=== PATIENT | female | born 1965 | race Caucasian/White ===

== ENCOUNTER 2018-10-28 16:53 | Inpatient (IN) ==
[2018-10-28] MEDS ORDERED: ONDANSETRON INJ 2 MG/ML 2 ML VIAL IV STA (17:10)
[2018-10-28] MEDS ORDERED: KETOROLAC TROMETHAMINE 15 MG/ML VIAL IV STA (17:10)
[2018-10-28] MEDS ORDERED: SODIUM CHLORIDE 0.9% 1000ML 1,000 ML IV SCH (17:15)
--- NOTE | 2018-10-28 17:29 | Emergency Department Note ---
Entered by Lori Rm acting as a scribe for Jonah Pearce MD History of Present Illness General Chief complaint: Flu Like Symptoms Stated complaint: + INFLUENZA A, CHEMO PATIENT Time Seen by Provider: 10/28/18 17:02 Source: patient Mode of arrival: ambulatory Limitations: no limitations History of Present Illness Provider complaint: flu-like symptoms Onset (ago): day(s) 3 Location: head (generalized) Pain Consistency: + other (persistent) Maximum Pain Intensity: 10 Current Pain Intensity: 7 Quality: + other (flu-like) Relieved By: not by medication Associated symptoms: + chest pain, + cough, + fever/chills, + loss of appetite, + nausea/vomiting, + shortness of breath and + weakness Treatments prior to arrival: other (Tamiflu) The patient is a 53 year old female who presents to the Emergency Room with complaints of persistent flu-like symptoms that began 3 days ago. The patient reports that she has been experiencing high fevers, loss of appetite, as well as a cough. She states that she has also had difficulty breathing secondary to chest pain which she describes as "an elephant siting on my chest." She notes that she has also had a sore throat as well as vomiting and diarrhea. The patient reports that she was diagnosed yesterday with Influenza A via a nose swab and given Tamiflu. She states that she did take it today but notes no relief of her symptoms. The patient reports that she currently has Lymphoma and states that her last chemotherapy session was on October 13. She denies receiving radiation. She also denies a history of heart or lung disease. The patient reports that she has been drinking Pedialyte, water and Rosalba Mary Jane. She denies having a chest x-ray performed yesterday. Home Medications Home Medications Medication Instructions Recorded Confirmed Type albuterol sulfate [ProAir HFA] 2 puff INHALATION Q6H PRN 10/28/18 10/28/18 History alprazolam 0.5 mg PO HS PRN 10/28/18 10/28/18 History apremilast [Otezla Starter] 1 dose PO DIRECTED 10/28/18 10/28/18 History betamethasone valerate 1 applic TOPICAL DIRECTED 10/28/18 10/28/18 History escitalopram oxalate 10 mg PO DAILY 10/28/18 10/28/18 History hydrochlorothiazide 25 mg PO DAILY 10/28/18 10/28/18 History linaclotide [Linzess] 145 mcg PO DAILY 10/28/18 10/28/18 History oseltamivir 75 mg PO BID 10/28/18 10/28/18 History pantoprazole 20 mg PO DAILY 10/28/18 10/28/18 History selenium sulfide 1 applic TOPICAL DIRECTED 10/28/18 10/28/18 History Allergies Allergy/AdvReac Type Severity Reaction Status Date / Time rituximab Allergy Severe ANAPHYLAXIS Verified 10/28/18 17:34 Past Med/Surg History Medical History Subconjunctival hemorrhage (Chronic) Lymphoma (Chronic) HTN (hypertension) (Chronic) Psoriasis (Chronic) GERD (gastroesophageal reflux disease) (Chronic) IBS (irritable bowel syndrome) (Chronic) Follicular lymphoma (Chronic) Surgical History Bilateral breast implants (Chronic 09/18/12) Family History Mother Hypertension Social History marital status: Current Living Situation: Spouse Feels Safe at Home: Yes Smoking Status: Never smoker Hx Alcohol Use: Yes Review of Systems See HPI for pertinent positives & negatives. and A total of 10 systems reviewed and were otherwise negative Physical Exam Vital Signs Vital Signs - 24 hr 10/28/18 16:55 10/28/18 17:32 10/28/18 17:44 Temperature 36.9 C Temperature Source Oral Sepsis Recent Fever Within 48 Hours No Sepsis Action Taken by Nursing No Action Required Pulse Rate 84 Pulse Rate [Apical] 78 Pulse Rhythm Regular Pulse Strength Normal Respiratory Rate 22 22 Respiratory Effort / Characteristics Non-Labored Spontaneous Non-Labored Respiratory Depth Normal Normal Respiratory Pattern Regular Regular Blood Pressure 130/86 Blood Pressure [Left Arm] 125/84 Blood Pressure Mean 100 Blood Pressure Mean [Left Arm] 97 Blood Pressure Position Sitting Blood Pressure Position [Left Arm] Lying Pulse Oximetry 97 99 99 Oxygen Delivery Method Room Air Room Air Room Air 10/28/18 19:05 Temperature Temperature Source Sepsis Recent Fever Within 48 Hours Sepsis Action Taken by Nursing Pulse Rate Pulse Rate [Apical] 74 Pulse Rhythm Pulse Strength Respiratory Rate 16 Respiratory Effort / Characteristics Non-Labored Respiratory Depth Normal Respiratory Pattern Regular Blood Pressure Blood Pressure [Left Arm] 135/91 Blood Pressure Mean Blood Pressure Mean [Left Arm] 105 Blood Pressure Position Blood Pressure Position [Left Arm] Lying Pulse Oximetry 94 Oxygen Delivery Method Room Air GENERAL: Patient is in no acute distress. HEENT: No acute trauma, normocephalic atraumatic, mucous membranes moist, no nasal congestion, no scleral icterus. No throat erythema or exudate. NECK: No stridor, no adenopathy, no meningismus, trachea is midline. LUNGS: Clear to auscultation bilaterally, no wheeze, no rhonchi, breath sounds equal. HEART: Without murmurs gallops or rubs, regular rate and rhythm. ABDOMEN: Soft, nontender, bowel sounds positive, no hernias, no peritonitis. EXTREMITIES: No cyanosis or edema, full range of motion of all the joints without pain or difficulty, no signs for acute trauma. NEUROLOGIC: Oriented x 3, no acute motor or sensory deficits, no focal weakness. SKIN: No rash, no jaundice, no diaphoresis. Course 170: Past medical records reviewed. The patient was evaluated in room B9, and a complete history and physical examination were performed. 1814: I reviewed the patient's case with Carine Jeter PA-C - [facility] Hospitalist. She will evaluate the patient for further management. 1820: I updated the patient on today's findings as well as the treatment plan. Administered Medications Discontinued Medications Sodium Chloride (Nss 1000ml) 1,000 mls @ 999 mls/hr IV .[id number] GENA Stop: 10/28/18 18:15 Last Infusion: 10/28/18 18:36 Dose: 0 mls/hr Documented by: [id number] Admin: 10/28/18 17:39 Dose: 999 mls/hr Documented by: [id number] Potassium Chloride (K Germán / Wtr) 10 meq in 100 mls @ 100 mls/hr IV ONE ONE Stop: 10/28/18 19:12 Last Infusion: 10/28/18 19:44 Dose: 0 mls/hr Documented by: [id number] Admin: 10/28/18 18:39 Dose: 100 mls/hr Documented by: [id number] Sodium Chloride (Nss 1000ml) 500 mls @ 999 mls/hr IV .Q31M ONE Stop: 10/28/18 18:44 Last Infusion: 10/28/18 19:17 Dose: 0 mls/hr Documented by: [id number] Admin: 10/28/18 18:39 Dose: 999 mls/hr Documented by: [id number] Potassium Chloride 40 meq/ (Sodium Chloride) 1,020 mls @ 100 mls/hr IV .[id number] GENA Stop: 11/27/18 19:14 Last Infusion: 10/28/18 20:26 Dose: 0 mls/hr Documented by: [id number] Admin: 10/28/18 19:47 Dose: 100 mls/hr Documented by: [id number] Ketorolac Tromethamine (Toradol) 15 mg IV NOW STA Stop: 10/28/18 17:11 Last Admin: 10/28/18 17:39 Dose: 15 mg Documented by: [id number] Ondansetron HCl (Zofran) 4 mg IV NOW STA Stop: 10/28/18 17:11 Last Admin: 10/28/18 17:39 Dose: 4 mg Documented by: [id number] Potassium Chloride (Klor-Con M20) 40 meq PO NOW STA Stop: 10/28/18 18:14 Last Admin: 10/28/18 18:39 Dose: 40 meq Documented by: [id number] Potassium Chloride (Klor-Con M10) 50 meq PO NOW STA Stop: 10/28/18 19:54 Last Admin: 10/28/18 20:58 Dose: Not Given Documented by: [id number] Medical Decision Making Differential Diagnosis Differential Diagnosis includes: influenza, immunocompromise, pneumonia, anemia, electrolyte imbalance, cardiac ischemia, UTI, failed outpatient treatments Medical Records Attestation: I reviewed the patient's medical records. Home Medications Current Medication List: was personally reviewed by me Laboratory Data Attestation: I reviewed the patient's lab results. Result diagrams: 10/28/18 17:17 10/28/18 17:17 Lab Results 10/28/18 10/28/18 10/28/18 Range/Units 17:17 17:17 17:17 WBC 2.52 L (4.8-10.8) K/uL RBC 4.17 L (4.2-5.4) M/uL Hgb 13.2 (12.0-16.0) g/dL Hct 36.2 L (37-47) % MCV 86.8 (80-100) fL MCH 31.7 (25-34) pg MCHC 36.5 H (32-36) g/dL RDW Std Deviation 38.9 (36.4-46.3) fL RDW Coeff of Manisha 12.2 (11.5-14.5) % Plt Count 158 (130-400) K/uL MPV 8.8 (7.4-10.4) fL Immature Gran % (Auto) 0.8 % Neut % (Auto) 73.8 % Lymph % (Auto) 12.3 % Wilkes % (Auto) 12.7 % Eos % (Auto) 0.0 % Baso % (Auto) 0.4 % Immature Gran # (Auto) 0.02 (0.00-0.02) K/uL Neut # (Auto) 1.86 (1.4-6.5) K/uL Lymph # (Auto) 0.31 L (1.2-3.4) K/uL [place] # (Auto) 0.32 (0.11-0.59) K/uL Eos # (Auto) 0.00 (0-0.5) K/uL Baso # (Auto) 0.01 (0-0.2) K/uL Sodium 124 L (136-145) mmol/L Potassium 2.5 L* (3.5-5.1) mmol/L Chloride 84 L (98-107) mmol/L Carbon Dioxide 32 (21-32) mmol/L Anion Gap 8.0 (3-11) BUN 7 (7-18) mg/dl Creatinine 0.74 (0.6-1.2) mg/dl Est Cr Clr Drug Dosing 79.1 ml/min Est GFR ( Amer) 107.2 Est GFR (Non-Af Amer) 92.5 BUN/Creatinine Ratio 10.0 (10-20) Glucose 98 (70-99) mg/dl Osmolality 256 L (280-300) mOsm/kg Lactate (0.4-2.0) mmol/L Calcium 8.3 L (8.5-10.1) mg/dl Magnesium 2.2 (1.8-2.4) mg/dl Total Bilirubin 0.7 (0.2-1) mg/dl AST 28 (15-37) U/L ALT 28 (12-78) U/L Alkaline Phosphatase 42 L (45-117) U/L Troponin I < 0.015 (0-0.045) ng/ml Total Protein 7.1 (6.4-8.2) gm/dl Albumin 3.7 (3.4-5.0) gm/dl Globulin 3.4 (2.5-4.0) gm/dl Albumin/Globulin Ratio 1.1 (0.9-2) TSH 2.460 (0.300-4.500) uIu/ml 10/28/18 Range/Units 17:20 WBC (4.8-10.8) K/uL RBC (4.2-5.4) M/uL Hgb (12.0-16.0) g/dL Hct (37-47) % MCV (80-100) fL MCH (25-34) pg MCHC (32-36) g/dL RDW Std Deviation (36.4-46.3) fL RDW Coeff of Manisha (11.5-14.5) % Plt Count (130-400) K/uL MPV (7.4-10.4) fL Immature Gran % (Auto) % Neut % (Auto) % Lymph % (Auto) % [place]kes % (Auto) % Eos % (Auto) % Baso % (Auto) % Immature Gran # (Auto) (0.00-0.02) K/uL Neut # (Auto) (1.4-6.5) K/uL Lymph # (Auto) (1.2-3.4) K/uL Wilkes # (Auto) (0.11-0.59) K/uL Eos # (Auto) (0-0.5) K/uL Baso # (Auto) (0-0.2) K/uL Sodium (136-145) mmol/L Potassium (3.5-5.1) mmol/L Chloride (98-107) mmol/L Carbon Dioxide (21-32) mmol/L Anion Gap (3-11) BUN (7-18) mg/dl Creatinine (0.6-1.2) mg/dl Est Cr Clr Drug Dosing ml/min Est GFR ( Amer) Est GFR (Non-Af Amer) BUN/Creatinine Ratio (10-20) Glucose (70-99) mg/dl Osmolality (280-300) mOsm/kg Lactate 1.0 (0.4-2.0) mmol/L Calcium (8.5-10.1) mg/dl Magnesium (1.8-2.4) mg/dl Total Bilirubin (0.2-1) mg/dl AST (15-37) U/L ALT (12-78) U/L Alkaline Phosphatase (45-117) U/L Troponin I (0-0.045) ng/ml Total Protein (6.4-8.2) gm/dl Albumin (3.4-5.0) gm/dl Globulin (2.5-4.0) gm/dl Albumin/Globulin Ratio (0.9-2) TSH (0.300-4.500) uIu/ml Imaging Data Radiologist's Impression: Radiology results as stated below per my review and the radiologist's interpretation: XR chest 1V portable CLINICAL HISTORY: weakness dyspnea COMPARISON STUDY: 02/19/2018 FINDINGS: Central catheter in the superior vena cava. Lungs are clear. Diaphragms smooth. Minimal platelike atelectasis right midlung. IMPRESSION: No acute process. The above report was generated using voice recognition software. It may contain grammatical, syntax or spelling errors. Electronically signed by: Tunde Moore M.D. 10/28/2018 5:32 PM Blood Pressure Blood Pressure Findings: Normal blood pressure Blood Pressure Disposition: did not require urgent referral MDM Narrative The patient does have a lower white count, this is consistent with her chemotherapy, she is not neutropenic. No concerning anemia. Electrolytes demonstrate a low sodium and low potassium. No kidney failure. No hepatitis. EKG shows a sinus rhythm, no acute ischemia. Cardiac enzyme testing x1 is not consistent with acute cardiac injury. The patient appears to be in a euthyroid state. Chest film does not show pneumonia or CHF. The patient received IV saline, she was given a second bolus of IV saline. She received IV Toradol for pain, IV Zofran for nausea. She received oral and IV potassium. The patient presents with influenza A as diagnosis an outpatient. She is on chemotherapy and has lymphoma. She presents with nausea, vomiting and diarrhea. She has Zofran at home that is not working. She has developed hyponatremia and hypokalemia and she is dehydrated. A hospital stay is warranted. I spoke to the patient and gearcase assembler. The on-call hospitalist was consulted. Impression & Plan Weak, Lymphoma, Nausea & vomiting, Hyponatremia, Hypokalemia, Influenza A Discharge Plan Visit Data *Final* Discharge Date/Time: 10/28/18 20:12 Chief Complaint: Flu Like Symptoms Stated Complaint: + INFLUENZA A, CHEMO PATIENT ED Provider: Jonah Pearce Discharge Problem: Weak, Lymphoma, Nausea & vomiting, Hyponatremia, Hypokalemia, Influenza A Patient Disposition: Admitted As Inpatient Discharge Instructions Interventions: ED Discharge Assessment Last Done: 10/28/18 20:12 Discharge Problem: Lymphoma Qualifiers: Lymphoma type: unspecified type Lymphoma site: unspecified region Qualified Code(s): C85.90 - Non-Hodgkin lymphoma, unspecified, unspecified site Nausea & vomiting Qualifiers: Vomiting type: unspecified Vomiting Intractability: non-intractable Qualified Code(s): R11.2 - Nausea with vomiting, unspecified The scribe's documentation has been prepared under my direction and personally reviewed by me in its entirety. I confirm that the note above accurately reflects all work, treatment, procedures, and medical decision making performed by me.
[2018-10-28 17:32] LABS: Basophils # (auto) 0.01 K/uL (0-0.2); Basophils % (auto) 0.4 %; Hematocrit (blood only) 36.2 % (37-47); Hemoglobin 13.2 g/dL (12.0-16.0); Immature Granulocytes # (auto) 0.02 K/uL (0.00-0.02); Immature Granulocytes % (auto) 0.8 %; Lymphocytes # (auto) 0.31 K/uL (1.2-3.4); Lymphocytes % (auto) 12.3 %; Mean Corpuscular Hgb Conc 36.5 g/dL (32-36); Mean Corpuscular Volume 86.8 fL (80-100); Mean Platelet Volume 8.8 fL (7.4-10.4); Monocytes # (auto) 0.32 K/uL (0.11-0.59); Monocytes % (auto) 12.7 %; Neutrophils # (auto) 1.86 K/uL (1.4-6.5); Neutrophils % (auto) 73.8 %; Platelet Count 158 K/uL (130-400); RDW Coefficient of Variation 12.2 % (11.5-14.5); RDW Standard Deviation 38.9 fL (36.4-46.3); Red Blood Count 4.17 M/uL (4.2-5.4); White Blood Count 2.52 K/uL (4.8-10.8)
--- NOTE | 2018-10-28 17:33 | XRay Report ---
XR chest 1V portable CLINICAL HISTORY: weakness dyspnea COMPARISON STUDY: 02/19/2018 FINDINGS: Central catheter in the superior vena cava. Lungs are clear. Diaphragms smooth. Minimal rebekah telike atelectasis right midlung. IMPRESSION: No acute process. The above report was generated using voice recognition software. It may contain grammatical, syntax or spelling errors. Electronically signed by: Tunde Moore M.D. 10/28/2018 5:32 PM
[2018-10-28 18:10] LABS: Alanine Aminotransferase 28 U/L (12-78); Albumin Globulin Ratio 1.1 (0.9-2); Albumin Level 3.7 gm/dl (3.4-5.0); Alkaline Phosphatase 42 U/L (45-117); Aspartate Aminotransferase 28 U/L (15-37); Bilirubin,Total 0.7 mg/dl (0.2-1); Blood Urea Nitrogen 7 mg/dl (7-18); Calcium 8.3 mg/dl (8.5-10.1); Carbon Dioxide 32 mmol/L (21-32); Chloride 84 mmol/L (98-107); Creatinine Clr Calc Pharmacy 79.1 ml/min; Est GFR (African American) 107.2; Est GFR (Non-African American) 92.5; Globulin 3.4 gm/dl (2.5-4.0); Glucose 98 mg/dl (70-99); Magnesium 2.2 mg/dl (1.8-2.4); Potassium 2.5 mmol/L (3.5-5.1); Sodium 124 mmol/L (136-145); Total Protein 7.1 gm/dl (6.4-8.2); Troponin I < 0.015 ng/ml (0-0.045)
[2018-10-28] MEDS ORDERED: POTASSIUM CHLORIDE / WTR 10 MEQ/100 ML PLCT IV ONE (18:13)
[2018-10-28] MEDS ORDERED: POTASSIUM CHLORIDE 20 MEQ TABCR PO STA ×3 (18:13→23:47)
[2018-10-28] MEDS ORDERED: SODIUM CHLORIDE 0.9% 1000ML 500 ML IV ONE (18:14)
[2018-10-28] MEDS ORDERED: POTASSIUM CHLORIDE 40 MEQ in SODIUM CHLORIDE 0.9% 1000ML 1,000 ML IV SCH (19:15)
[2018-10-28] MEDS ORDERED: CALCIUM GLUCONATE 10% 10 ML VIAL IV STA (19:49)
[2018-10-28] MEDS ORDERED: POTASSIUM CHLORIDE 10 MEQ TABCR PO STA (19:53)
--- NOTE | 2018-10-28 20:05 | History & Physical Report ---
Date of Service October 28, 2018 Assessment & Plan (1) Influenza A: (2) Hypokalemia: (3) Hyponatremia: Please refer to Dr. Martínez's addendum for assessment and plan History of Present Illness Chief Complaint: Fever, Nausea, Vomiting, Diarrhea Primary Care Provider: Jeffrey Chance DO 53-year-old female who presents the ED with fever, nausea, vomiting, diarrhea. Patient was seen at [facility] in [place] yesterday and diagnosed with influenza A. Patient was started on Tamiflu. Of note, patient has follicular lymphoma and is currently undergoing chemo, last treatment was on October 13 (bendumustine, which she receives every 8 weeks at [facility] in [place]). Patient reports she has been sick for the past 4 days. She reports fever, body aches, chills. She has had vomiting and diarrhea but denies any hematemesis, coffee-ground emesis, bright blood per rectum, dark tarry stools. She denies any recent sick contacts. She reports chest pain but reports that her body aches all over. She reports some mild lightheadedness and dizziness while standing but denies any syncopal event. No urinary symptoms. In the ED, patient was found to have electrolyte abnormalities including hyponatremia with sodium 124 and hypokalemia with potassium 2.5. Patient was given IVF, potassium replacement, IV Toradol, IV Zofran. Allergies Allergy/AdvReac Type Severity Reaction Status Date / Time rituximab Allergy Severe ANAPHYLAXIS Verified 10/28/18 17:34 Home Medications Home Medications Medication Instructions Recorded Confirmed Type albuterol sulfate [ProAir HFA] 2 puff INHALATION Q6H PRN 10/28/18 10/28/18 History alprazolam 0.5 mg PO HS PRN 10/28/18 10/28/18 History apremilast [Otezla Starter] 1 dose PO DIRECTED 10/28/18 10/28/18 History betamethasone valerate 1 applic TOPICAL DIRECTED 10/28/18 10/28/18 History escitalopram oxalate 10 mg PO DAILY 10/28/18 10/28/18 History hydrochlorothiazide 25 mg PO DAILY 10/28/18 10/28/18 History linaclotide [Linzess] 145 mcg PO DAILY 10/28/18 10/28/18 History oseltamivir 75 mg PO BID 10/28/18 10/28/18 History pantoprazole 20 mg PO DAILY 10/28/18 10/28/18 History selenium sulfide 1 applic TOPICAL DIRECTED 10/28/18 10/28/18 History Past Med/Surg History Medical History Subconjunctival hemorrhage (Chronic) Lymphoma (Chronic) HTN (hypertension) (Chronic) Psoriasis (Chronic) GERD (gastroesophageal reflux disease) (Chronic) IBS (irritable bowel syndrome) (Chronic) Follicular lymphoma (Chronic) Surgical History Bilateral breast implants (Chronic 09/18/12) Family History Mother Hypertension Social History Preferred Language: Austrian Communication Ability: Effective Beliefs That Will Affect Care: None marital status: Current Living Situation: Spouse Feels Safe at Home: Yes Safety Concerns: Feels Safe At This Time Smoking Status: Never smoker Hx Alcohol Use: Yes Review of Systems ROS per HPI, all other systems reviewed and negative Physical Exam Vital Signs (Past 24 Hours): Last Vital Signs Temp 36.9 C 10/28/18 16:55 Pulse 74 10/28/18 19:05 Resp 16 10/28/18 19:05 BP 135/91 10/28/18 19:05 Pulse Ox 94 10/28/18 19:05 Constitutional: WD/WN, vitals as above + ill appearing Eyes: PERRL, conjunctivae normal, anicteric sclerae ENMT: external ear and nose normal, oropharynx normal Respiratory: normal respiratory effort, lungs clear to auscultation Cardiovascular: Rate/Rhythm: regular rate and regular rhythm Vessels: normal peripheral pulses Extremities: no edema Chest (Breasts): Chest: + vascular access device or port (Port noted to right chest(currently not accessed), no surrounding erythema or drainage) Gastrointestinal (Abdomen): normal bowel sounds, soft, nontender, no hepatosplenomegaly Musculoskeletal: no cyanosis or clubbing, extremities motor strength 5/5 Skin: no rashes, warm and dry Neurologic: PERRL, EOMI, accommodation nl, no face palsy, no dysarthria Psychiatric: A+Ox3, euthymic affect Results & Data Laboratory Results Laboratory Last Values WBC 2.52 K/uL (4.8-10.8) L 10/28/18 17:17 RBC 4.17 M/uL (4.2-5.4) L 10/28/18 17:17 Hgb 13.2 g/dL (12.0-16.0) 10/28/18 17:17 Hct 36.2 % (37-47) L 10/28/18 17:17 MCV 86.8 fL (80-100) 10/28/18 17:17 MCH 31.7 pg (25-34) 10/28/18 17:17 MCHC 36.5 g/dL (32-36) H 10/28/18 17:17 RDW Std Deviation 38.9 fL (36.4-46.3) 10/28/18 17:17 RDW Coeff of Manisha 12.2 % (11.5-14.5) 10/28/18 17:17 Plt Count 158 K/uL (130-400) 10/28/18 17:17 MPV 8.8 fL (7.4-10.4) 10/28/18 17:17 Immature Gran % (Auto) 0.8 % 10/28/18 17:17 Neut % (Auto) 73.8 % 10/28/18 17:17 Lymph % (Auto) 12.3 % 10/28/18 17:17 [place] % (Auto) 12.7 % 10/28/18 17:17 Eos % (Auto) 0.0 % 10/28/18 17:17 Baso % (Auto) 0.4 % 10/28/18 17:17 Immature Gran # (Auto) 0.02 K/uL (0.00-0.02) 10/28/18 17:17 Neut # (Auto) 1.86 K/uL (1.4-6.5) 10/28/18 17:17 Lymph # (Auto) 0.31 K/uL (1.2-3.4) L 10/28/18 17:17 [place] # (Auto) 0.32 K/uL (0.11-0.59) 10/28/18 17:17 Eos # (Auto) 0.00 K/uL (0-0.5) 10/28/18 17:17 Baso # (Auto) 0.01 K/uL (0-0.2) 10/28/18 17:17 Sodium 124 mmol/L (136-145) L 10/28/18 17:17 Potassium 2.5 mmol/L (3.5-5.1) L* 10/28/18 17:17 Chloride 84 mmol/L (98-107) L 10/28/18 17:17 Carbon Dioxide 32 mmol/L (21-32) 10/28/18 17:17 Anion Gap 8.0 (3-11) 10/28/18 17:17 BUN 7 mg/dl (7-18) 10/28/18 17:17 Creatinine 0.74 mg/dl (0.6-1.2) 10/28/18 17:17 Est Cr Clr Drug Dosing 79.1 ml/min 10/28/18 17:17 Est GFR ( Amer) 107.2 10/28/18 17:17 Est GFR (Non-Af Amer) 92.5 10/28/18 17:17 BUN/Creatinine Ratio 10.0 (10-20) 10/28/18 17:17 Glucose 98 mg/dl (70-99) 10/28/18 17:17 Lactate 1.0 mmol/L (0.4-2.0) 10/28/18 17:20 Calcium 8.3 mg/dl (8.5-10.1) L 10/28/18 17:17 Magnesium 2.2 mg/dl (1.8-2.4) 10/28/18 17:17 Total Bilirubin 0.7 mg/dl (0.2-1) 10/28/18 17:17 AST 28 U/L (15-37) 10/28/18 17:17 ALT 28 U/L (12-78) 10/28/18 17:17 Alkaline Phosphatase 42 U/L (45-117) L 10/28/18 17:17 Troponin I < 0.015 ng/ml (0-0.045) 10/28/18 17:17 Total Protein 7.1 gm/dl (6.4-8.2) 10/28/18 17:17 Albumin 3.7 gm/dl (3.4-5.0) 02/28/19 17:17 Globulin 3.4 gm/dl (2.5-4.0) 10/28/18 17:17 Albumin/Globulin Ratio 1.1 (0.9-2) 10/28/18 17:17 TSH 2.460 uIu/ml (0.300-4.500) 10/28/18 17:17 Diagnostic Findings CXR IMPRESSION: No acute process. Code Status & VTE Plan VTE Prophylaxis Plan VTE Prophylaxis will be ordered: Yes Supervising Physician Co-Signing Physician Notes IM ATTENDING : Patient seen and examined. History obtained from patient and records. Preceding documentation by DOMINIC Tee reviewed. FINAL ASSESSMENT AND PLAN as follows : Hyponatremia, hypokalemia secondary to abdominal pain/diarrheal illness rule out C. difficile Poor oral intake from influenza home diuretic contributory Pleuritic chest pain secondary to cough symptoms from flu D-dimer was normal NHL ongoing chemotherapy HTN, stable Mood disorder, stable Past tobacco abuse Medical telemetry Careful correction of sodium, hyponatremia workup Appropriate to hold home HCTZ for now Nephrology consult if without improvement in a.m. Replace potassium Stool C. difficile CT abdomen pelvis RE abdominal pain rule out colitis Mucolytic as needed Complete Tamiflu course DVT prophylaxis. Lovenox subcu Full code
[2018-10-28] MEDS ORDERED: CALCIUM GLUCONATE 10% 1,000 MG in SODIUM CHLORIDE 0.9% 50 ML IV STA (20:21)
[2018-10-28] MEDS ORDERED: POTASSIUM CHLORIDE 20 MEQ TABCR PO ONE (21:00)
[2018-10-28] MEDS: OSELTAMIVIR PHOSPHATE 75 MG CAP PO SCH (22:02)
[2018-10-28] MEDS: LINZESS~ORDER AWAITING ACTION SCH (23:12)
[2018-10-28] MEDS: OTEZLA~ORDER AWAITING ACTION SCH (23:12)
[2018-10-28 23:29] LABS: Prothrombin Time 10.5 Seconds (9.0-12.0)
[2018-10-28 23:31] LABS: D Dimer 440 ug/L FEU (0-500); Partial Thromboplastin Ratio 1.2; Partial Thromboplastin Time 31.9 Seconds (21.0-31.0)
[2018-10-28 23:42] LABS: BUN Creatinine Ratio 11.7 (10-20); Creatinine Clr Calc Pharmacy 99.3 ml/min; Est GFR (African American) 115.2; Est GFR (Non-African American) 99.4; Potassium 3.1 mmol/L (3.5-5.1)
[2018-10-28] MEDS: ACETAMINOPHEN 325 MG TAB PO PRN (23:50)
[2018-10-29] MEDS ORDERED: MoRPHine SULFATE 4 MG/ML 1 ML CARP\\VIAL IV PRN (00:11)
[2018-10-29] MEDS ORDERED: BENZONATATE 100 MG CAPSULE PO PRN (00:11)
[2018-10-29] MEDS ORDERED: OXYCODONE HCL IR 5 MG TAB (IMMEDIATE RELEASE) PO PRN (00:11)
[2018-10-29] MEDS ORDERED: IOVERSOL 100ml IV PRN (00:19)
[2018-10-29] MEDS ORDERED: XOPENEX/ATROVENT 1.25mg/0.5MG NEB COMBO NEB PRN (01:41)
[2018-10-29] MEDS ORDERED: IPRATROPIUM BROMIDE NEB SOLN 0.02% 2.5 ML VIAL INH PRN (01:41)
[2018-10-29] MEDS ORDERED: LEVALBUTEROL 1.25MG/0.5ML NEB INH PRN (01:45)
[2018-10-29] MEDS: guaiFENesin 600 MG TABCR PO SCH ×3 (01:48→21:40)
[2018-10-29 02:08] LABS: Appearance Urine Clear (Clear); Bilirubin Urine Negative (Negative); Blood Urine Negative (Negative); Color Urine Yellow; Glucose Urine UA Negative (Negative); Ketones Urine Trace (Negative); Leukocyte Esterase Urine Negative (Negative); Nitrite Urine Negative (Negative); Protein Urine Negative (Negative); Specific Gravity Urine 1.037 (1.000-1.030); Urobilinogen Urine Negative (Negative); pH Urine 6.5 (4.5-7.5)
[2018-10-29 04:29] LABS: BUN Creatinine Ratio 11.9 (10-20); Calcium 7.8 mg/dl (8.5-10.1); Creatinine Clr Calc Pharmacy 110.5 ml/min; Est GFR (African American) 119.3; Est GFR (Non-African American) 102.9; Potassium 3.3 mmol/L (3.5-5.1)
[2018-10-29 04:30] LABS: Hematocrit (blood only) 32.8 % (37-47); Hemoglobin 11.9 g/dL (12.0-16.0); Mean Corpuscular Hgb Conc 36.3 g/dL (32-36); Mean Platelet Volume 9.2 fL (7.4-10.4); Platelet Count 151 K/uL (130-400); RDW Coefficient of Variation 12.3 % (11.5-14.5); RDW Standard Deviation 39.3 fL (36.4-46.3); Red Blood Count 3.77 M/uL (4.2-5.4); White Blood Count 1.42 K/uL (4.8-10.8)
[2018-10-29 04:38] LABS: Basophils # (auto) 0.01 K/uL (0-0.2); Basophils % (auto) 0.7 %; Eosinophils # (auto) 0.01 K/uL (0-0.5); Eosinophils % (auto) 0.7 %; Immature Granulocytes # (auto) 0.01 K/uL (0.00-0.02); Immature Granulocytes % (auto) 0.7 %; Lymphocytes # (auto) 0.34 K/uL (1.2-3.4); Lymphocytes % (auto) 23.9 %; Monocytes # (auto) 0.19 K/uL (0.11-0.59); Monocytes % (auto) 13.4 %; Neutrophils # (auto) 0.86 K/uL (1.4-6.5); Neutrophils % (auto) 60.6 %
[2018-10-29] MEDS ORDERED: POTASSIUM CHLORIDE 20 MEQ TABCR PO STA (04:42)
[2018-10-29] MEDS ORDERED: NSS + 20MEQ KCL 20 MEQ/1,000 ML BAG IV ONE (05:00)
--- NOTE | 2018-10-29 06:55 | CT Scan Report ---
CT OF THE ABDOMEN AND PELVIS WITH CONTRAST CLINICAL HISTORY: Abdominal pain. COMPARISON STUDY: CT of the abdomen and pelvis 10/19/2012. Right upper quadrant ultrasound April 09, 2013. TECHNIQUE: Following IV administration of 92 mL of Optiray-320, axial images of the abdomen and pelvi s were obtained from the lung bases to the proximal femurs. Images were reviewed in the axial, sagitt al, and coronal planes. IV contrast was administered without complication. Automated exposure contro l was utilized for the study. A dose lowering technique was utilized adhering to the principles of A GAYATRI. CT DOSE: 452.38 mGy.cm FINDINGS: Bilateral breast implants are partially imaged. The liver, spleen, adrenal glands and pancr eas are unremarkable. There is no pancreatic or biliary ductal dilatation. Several right renal calcul i measure up to 5 mm. There are no ureteral catheter. There is no hydronephrosis or hydroureter. The nephrograms are symmetric. There is mild plaque of the abdominal aorta. There is trace fluid within t he pelvis. Note is made of mild bladder wall thickening. The appendix is not visualized. No pneumatos is, free air or portal venous gas is present. The small large bowel are slightly fluid-filled. There is no bowel wall thickening. No suspicious osseous lesions are noted. There is no lymphadenopathy. IMPRESSION: 1. Right-sided nephrolithiasis. No ureteral calculi. No hydronephrosis. 2. No bowel obstruction. No bowel wall thickening. Minimal fluid within the small bowel which is like ly within normal limits however an enteritis could have this appearance. 3. Trace fluid within the pelvis. 4. Bladder wall thickening which could be correlated with urinalysis to exclude cystitis. Electronically signed by: Danny Carvalho M.D. 10/29/2018 6:53 AM
[2018-10-29] MEDS: OTEZLA~ORDER AWAITING ACTION SCH ×3 (08:29→23:17)
[2018-10-29] MEDS: ESCITALOPRAM OXALATE 10 MG TAB PO SCH (08:29)
[2018-10-29] MEDS: OSELTAMIVIR PHOSPHATE 75 MG CAP PO SCH ×2 (08:29→21:39)
[2018-10-29] MEDS: PANTOprazole 40 MG TAB PO SCH (08:29)
[2018-10-29] MEDS: LINZESS~ORDER AWAITING ACTION SCH ×3 (08:30→23:17)
[2018-10-29] MEDS ORDERED: ENOXAPARIN INJ 30 MG/0.3 ML SYR SQ SCH (09:00)
[2018-10-29] MEDS: ENOXAPARIN INJ 40 MG/0.4 ML SYR SQ SCH (09:54)
--- NOTE | 2018-10-29 12:29 | Hospitalist Progress Note ---
Date of Service October 29, 2018 Assessment & Plan (1) Influenza A: on tamiflu associated with cough, diarrhea cough - Nebs q6h monitor management of diarrhea as noted below (2) Nausea & vomiting: associated with diarrhea likely viral CT abdomen: enteritis continue clear liquids c diff negative PRN Imodium IV fluids- monitor Na (3) Hyponatremia: 126 up to 132 repeat at 7pm may need to hold IV NSS if trending up, may need D5 water nephro consulted (4) Hypokalemia: replaced with PO Supplement and K added to NSS (5) Follicular lymphoma: last chemo 10/13 from Oncologist in [place] (6) Neutropenia: likely from viral infection, in the setting of chemotherapy monitor daily isolation protocol (7) HTN (hypertension): stable HCTZ on hold (8) Psoriasis: on Otezla (9) GERD (gastroesophageal reflux disease): Protonix ordered (10) Discharge planning issues: will need PT OT eval lives at home with family (11) DVT prophylaxis: Lovenox SC daily Subjective ff up for flu, cough, diarrhea seen resting in bed, comfortable states she feels somewhat better compared to yesterday still having diarrhea, 3 BMS so far, no blood with mild abdominal discomfort no nausea still has dry cough no chest pain denies other symptoms Physical Exam Vital Signs (Past 24 Hours): Last Vital Signs Temp 36.8 C 10/29/18 11:14 Pulse 68 10/29/18 11:14 Resp 20 10/29/18 11:14 BP 123/82 10/29/18 11:14 Pulse Ox 94 10/29/18 11:14 Physical Exam: General- oriented x 3, not in distress, speaks in sentences with no effort or accessory muscle use Eyes- anicteric Neck- no JVD Lungs- (+) mild scattered wheezing bilaterally Heart- normal rate, regular rhythm; no murmurs Abdomen- normal bowel sounds, nondistended, soft, nontender Extremities- no pretibial edema, no calf tenderness Neuro- alert, oriented x 3; no gross focal neurologic deficits Skin- warm & dry Results & Data Laboratory Results Laboratory Results - last 24 hr 10/28/18 10/28/18 10/28/18 17:17 17:17 17:20 WBC RBC Hgb Hct MCV MCH MCHC RDW Std Deviation RDW Coeff of Manisha Plt Count MPV Immature Gran % (Auto) Neut % (Auto) Lymph % (Auto) [place] % (Auto) Eos % (Auto) Baso % (Auto) Immature Gran # (Auto) Neut # (Auto) Lymph # (Auto) [place] # (Auto) Eos # (Auto) Baso # (Auto) PT INR APTT PTT Ratio D-Dimer Sodium 124 L Potassium 2.5 L* Chloride 84 L Carbon Dioxide 32 Anion Gap 8.0 BUN 7 Creatinine 0.74 Est Cr Clr Drug Dosing 79.1 Est GFR ( Amer) 107.2 Est GFR (Non-Af Amer) 92.5 BUN/Creatinine Ratio 10.0 Glucose 98 Osmolality 256 L Lactate 1.0 Calcium 8.3 L Magnesium 2.2 Total Bilirubin 0.7 AST 28 ALT 28 Alkaline Phosphatase 42 L Troponin I < 0.015 Total Protein 7.1 Albumin 3.7 Globulin 3.4 Albumin/Globulin Ratio 1.1 TSH 2.460 Urine Color Urine Appearance Urine pH Ur Specific [place] Urine Protein Urine Glucose (UA) Urine Ketones Urine Blood Urine Nitrite Urine Bilirubin Urine Urobilinogen Ur Leukocyte Esterase Stl C. diff Tox B Gene 10/28/18 10/28/18 10/28/18 23:02 23:02 23:02 WBC RBC Hgb Hct MCV MCH MCHC RDW Std Deviation RDW Coeff of Manisha Plt Count MPV Immature Gran % (Auto) Neut % (Auto) Lymph % (Auto) [place] % (Auto) Eos % (Auto) Baso % (Auto) Immature Gran # (Auto) Neut # (Auto) Lymph # (Auto) [place] # (Auto) Eos # (Auto) Baso # (Auto) PT 10.5 INR 1.0 APTT 31.9 H PTT Ratio 1.2 D-Dimer 440 Sodium 127 L Potassium 3.1 L D Chloride 91 L Carbon Dioxide 30 Anion Gap 6.0 BUN 8 Creatinine 0.69 Est Cr Clr Drug Dosing 99.3 Est GFR ( Amer) 115.2 Est GFR (Non-Af Amer) 99.4 BUN/Creatinine Ratio 11.7 Glucose 92 Osmolality Lactate Calcium 8.0 L Magnesium Total Bilirubin AST ALT Alkaline Phosphatase Troponin I Total Protein Albumin Globulin Albumin/Globulin Ratio TSH Urine Color Urine Appearance Urine pH Ur Specific [place] Urine Protein Urine Glucose (UA) Urine Ketones Urine Blood Urine Nitrite Urine Bilirubin Urine Urobilinogen Ur Leukocyte Esterase Stl C. diff Tox B Gene 10/29/18 10/29/18 10/29/18 01:58 03:54 03:54 WBC 1.42 L RBC 3.77 L Hgb 11.9 L Hct 32.8 L MCV 87.0 MCH 31.6 MCHC 36.3 H RDW Std Deviation 39.3 RDW Coeff of Manisha 12.3 Plt Count 151 MPV 9.2 Immature Gran % (Auto) 0.7 Neut % (Auto) 60.6 Lymph % (Auto) 23.9 [place] % (Auto) 13.4 Eos % (Auto) 0.7 Baso % (Auto) 0.7 Immature Gran # (Auto) 0.01 Neut # (Auto) 0.86 L* Lymph # (Auto) 0.34 L [place] # (Auto) 0.19 Eos # (Auto) 0.01 Baso # (Auto) 0.01 PT INR APTT PTT Ratio D-Dimer Sodium 126 L Potassium 3.3 L Chloride 91 L Carbon Dioxide 29 Anion Gap 6.0 BUN 7 Creatinine 0.62 Est Cr Clr Drug Dosing 110.5 Est GFR ( Amer) 119.3 Est GFR (Non-Af Amer) 102.9 BUN/Creatinine Ratio 11.9 Glucose 84 Osmolality Lactate Calcium 7.8 L Magnesium Total Bilirubin AST ALT Alkaline Phosphatase Troponin I Total Protein Albumin Globulin Albumin/Globulin Ratio TSH Urine Color Yellow Urine Appearance Clear Urine pH 6.5 Ur Specific [place] 1.037 H Urine Protein Negative Urine Glucose (UA) Negative Urine Ketones Trace H Urine Blood Negative Urine Nitrite Negative Urine Bilirubin Negative Urine Urobilinogen Negative Ur Leukocyte Esterase Negative Stl C. diff Tox B Gene 10/29/18 10/29/18 13:06 Unknown WBC RBC Hgb Hct MCV MCH MCHC RDW Std Deviation RDW Coeff of Manisha Plt Count MPV Immature Gran % (Auto) Neut % (Auto) Lymph % (Auto) [place] % (Auto) Eos % (Auto) Baso % (Auto) Immature Gran # (Auto) Neut # (Auto) Lymph # (Auto) [place] # (Auto) Eos # (Auto) Baso # (Auto) PT INR APTT PTT Ratio D-Dimer Sodium 132 L Potassium Chloride Carbon Dioxide Anion Gap BUN Creatinine Est Cr Clr Drug Dosing Est GFR ( Amer) Est GFR (Non-Af Amer) BUN/Creatinine Ratio Glucose Osmolality Lactate Calcium Magnesium Total Bilirubin AST ALT Alkaline Phosphatase Troponin I Total Protein Albumin Globulin Albumin/Globulin Ratio TSH Urine Color Urine Appearance Urine pH Ur Specific [place] Urine Protein Urine Glucose (UA) Urine Ketones Urine Blood Urine Nitrite Urine Bilirubin Urine Urobilinogen Ur Leukocyte Esterase Stl C. diff Tox B Gene Neg C.diff Toxin B (1) Nausea & vomiting Vomiting Intractability: non-intractable Vomiting type: unspecified Qualified Code(s): R11.2 - Nausea with vomiting, unspecified
[2018-10-29] MEDS ORDERED: LOPERAMIDE HCL 2 MG CAP PO PRN (12:30)
[2018-10-29] MEDS ORDERED: XOPENEX/ATROVENT 0.63mg/0.5MG NEB COMBO NEB SCH (14:00)
[2018-10-29] MEDS: LEVALBUTEROL HCL 0.63 MG/3 ML NEB NEB SCH ×2 (15:23→19:14)
[2018-10-29] MEDS: IPRATROPIUM BROMIDE NEB SOLN 0.02% 2.5 ML VIAL INH SCH ×2 (15:23→19:14)
[2018-10-29] MEDS ORDERED: PANTOprazole 40 MG in SYRINGE 0 ML IV ONE (17:30)
--- NOTE | 2018-10-29 18:36 | Nephrology Consultation ---
Date of Consultation October 29, 2018 Assessment & Plan (1) Hyponatremia: serum sodium was 124 on presentation; goal for this evening 1900 is 132, same as it was midday w/ adequate K -f/u pending bmp -cont current ivf for now; may need D5W w/ K depending on results -no indication at this point to check urine studies -would list hctz as intolerance adn advised pt about this Present on Admission?: Yes (2) Hypokalemia: needing aggressive repletion, likely from vomiting/diarrhea -recheck status -currently getting IV supplements and po; remains on liquid diet for now Present on Admission?: Yes History of Present Illness Reason for Consultation: hyponatremia Requesting Physician: DR Oscar Attending Physician: Jimi Castorena MD History of Present Illness 53 y/o F whom I"m asked to see for hyponatremia w/ presenting sNa 124 last evening, up to 126 this am and 132 at noon. She has follicular lymphoma and is undergoing chemo (last dose 10/13 bendumustine; given in [facility]). Also w/ hx HTN on hctz. She went to urgent care yesterday and was dx'd w/ influenza A. presented w/ 4 days of f/chills and vomiting , diarrhea; also w/ nonproductive cough and sob. Presenting K was 2.5. her presenting urine sg was 1032; urine sodium/osms not posted. serum osms on presentation 256. She had ivf, K replacement and toradol, zofran in ER. Her sodium continued to climb today w/ hydration to 132 on NS infusion. repeat lab ordered for 1899. C diff is negative. She did have IV contrast on admission for CT scan abd/pelvis showing no colitis and + nephrolithiasis. She is receiving NS w/ 20 mEq/L K at 50 mL /hr. Her sbp has been in 110s. she had 2L NS yesterday evening. remains sob despite nebs; but breathing no worse w/ IVF Allergies Allergy/AdvReac Type Severity Reaction Status Date / Time rituximab Allergy Severe ANAPHYLAXIS Verified 10/28/18 17:34 Home Medications Home Medications Medication Instructions Recorded Confirmed Type albuterol sulfate [ProAir HFA] 2 puff INHALATION Q6H PRN 10/28/18 10/28/18 History alprazolam 0.5 mg PO HS PRN 10/28/18 10/28/18 History apremilast [Otezla Starter] 1 dose PO DIRECTED 10/28/18 10/28/18 History betamethasone valerate 1 applic TOPICAL DIRECTED 10/28/18 10/28/18 History escitalopram oxalate 10 mg PO DAILY 10/28/18 10/28/18 History hydrochlorothiazide 25 mg PO DAILY 10/28/18 10/28/18 History linaclotide [Linzess] 145 mcg PO DAILY 10/28/18 10/28/18 History oseltamivir 75 mg PO BID 10/28/18 10/28/18 History pantoprazole 20 mg PO DAILY 10/28/18 10/28/18 History selenium sulfide 1 applic TOPICAL DIRECTED 10/28/18 10/28/18 History Patient History Medical History Subconjunctival hemorrhage (Chronic) Lymphoma (Chronic) HTN (hypertension) (Chronic) Psoriasis (Chronic) GERD (gastroesophageal reflux disease) (Chronic) IBS (irritable bowel syndrome) (Chronic) Follicular lymphoma (Chronic) Surgical History Bilateral breast implants (Chronic 09/18/12) Family History Mother Hypertension Social History Communication Ability: Effective Beliefs That Will Affect Care: None marital status: Current Living Situation: Spouse Feels Safe at Home: Yes Safety Concerns: Feels Safe At This Time Smoking Status: Never smoker Hx Alcohol Use: Yes Review of Systems Constitutional: as per Subjective / HPI, + fever, + fatigue and + weakness Eyes: no worsening vision Ear, Nose, Mouth, Throat: + dizziness, + change in voice and + hoarseness; no dry mouth Respiratory: as per Subjective / HPI, + cough, + chest congestion, + dyspnea, + dyspnea on exertion and + pain with cough; no change in sputum and no hemoptysis Cardiovascular: + dyspnea, + dyspnea on exertion, + orthopnea and + lightheadedness; no palpitations and no edema Gastrointestinal: + abdominal pain, + nausea, + vomiting and + diarrhea/loose stools Genitourinary (Female): no dysuria, no urinary frequency, no urinary hesitancy and no urinary urgency Musculoskeletal: + body aches Integumentary: no rash and no non-healing lesions Neurologic: no tremor(s) and no confusion Psychiatric: no behavioral changes Endocrine: + fatigue Hematologic / Lymphatic: no easy bleeding Physical Exam Vital Signs (Past 24 Hours): Last Vital Signs Temp 36.5 C 10/29/18 16:00 Pulse 75 10/29/18 16:00 Resp 20 10/29/18 16:00 BP 115/69 10/29/18 16:00 Pulse Ox 95 10/29/18 16:00 Constitutional: well developed and well nourished on ra thick cough in exam else no distress Eyes: EOM intact bilaterally ENMT: Ears: no external ear abnormality Nose: no external nose abnormality Mouth: + dry oral mucous membranes Neck: no nuchal rigidity Respiratory: normal respiratory effort Auscultation: + diminished lung sounds, + rales, + rhonchi and + wheezes Cardiovascular: RRR, no murmur, no edema Gastrointestinal (Abdomen): Inspection/Auscultation: normal bowel sounds Percussion/Palpation: + abdomen tender (to moderate palpation in epigastrium) and abdomen soft Musculoskeletal: Extremities: strength 5/5 throughout Skin: no rashes, warm and dry Neurologic: contreras, fluent speech, no tremor Psychiatric: A+Ox3, euthymic affect Genitourinary: no vila Results & Data Laboratory Results Abnormal lab results 10/28/18 10/28/18 10/28/18 Range/Units 17:17 23:02 23:02 WBC (4.8-10.8) K/uL RBC (4.2-5.4) M/uL Hgb (12.0-16.0) g/dL Hct (37-47) % MCHC (32-36) g/dL Neut # (Auto) (1.4-6.5) K/uL Lymph # (Auto) (1.2-3.4) K/uL APTT 31.9 H (21.0-31.0) Seconds Sodium 127 L (136-145) mmol/L Potassium 3.1 L D (3.5-5.1) mmol/L Chloride 91 L (98-107) mmol/L Osmolality 256 L (280-300) mOsm/kg Calcium 8.0 L (8.5-10.1) mg/dl Ur Specific [place] (1.000-1.030) Urine Ketones (Negative) 10/29/18 10/29/18 10/29/18 Range/Units 01:58 03:54 03:54 WBC 1.42 L (4.8-10.8) K/uL RBC 3.77 L (4.2-5.4) M/uL Hgb 11.9 L (12.0-16.0) g/dL Hct 32.8 L (37-47) % MCHC 36.3 H (32-36) g/dL Neut # (Auto) 0.86 L* (1.4-6.5) K/uL Lymph # (Auto) 0.34 L (1.2-3.4) K/uL APTT (21.0-31.0) Seconds Sodium 126 L (136-145) mmol/L Potassium 3.3 L (3.5-5.1) mmol/L Chloride 91 L (98-107) mmol/L Osmolality (280-300) mOsm/kg Calcium 7.8 L (8.5-10.1) mg/dl Ur Specific [place] 1.037 H (1.000-1.030) Urine Ketones Trace H (Negative) 10/29/18 Range/Units 13:06 WBC (4.8-10.8) K/uL RBC (4.2-5.4) M/uL Hgb (12.0-16.0) g/dL Hct (37-47) % MCHC (32-36) g/dL Neut # (Auto) (1.4-6.5) K/uL Lymph # (Auto) (1.2-3.4) K/uL APTT (21.0-31.0) Seconds Sodium 132 L (136-145) mmol/L Potassium (3.5-5.1) mmol/L Chloride (98-107) mmol/L Osmolality (280-300) mOsm/kg Calcium (8.5-10.1) mg/dl Ur Specific [place] (1.000-1.030) Urine Ketones (Negative) Diagnostic Findings ct abd/pelvis w/ con 1. Right-sided nephrolithiasis. No ureteral calculi. No hydronephrosis. 2. No bowel obstruction. No bowel wall thickening. Minimal fluid within the small bowel which is likely within normal limits however an enteritis could have this appearance. 3. Trace fluid within the pelvis. 4. Bladder wall thickening which could be correlated with urinalysis to exclude cystitis. cxr no acute process
[2018-10-29 19:01] LABS: BUN Creatinine Ratio 8.1 (10-20); Calcium 8.4 mg/dl (8.5-10.1); Creatinine Clr Calc Pharmacy 112.9 ml/min; Est GFR (Non-African American) 103.5; Potassium 3.4 mmol/L (3.5-5.1)
[2018-10-29] MEDS: POTASSIUM CHLORIDE 40 MEQ in DEXTROSE 5% 1,000 ML IV SCH (23:17)
[2018-10-30] MEDS: LEVALBUTEROL HCL 0.63 MG/3 ML NEB NEB SCH ×4 (01:56→19:09)
[2018-10-30] MEDS: IPRATROPIUM BROMIDE NEB SOLN 0.02% 2.5 ML VIAL INH SCH ×4 (01:56→19:09)
[2018-10-30 06:51] LABS: Hematocrit (blood only) 33.4 % (37-47); Hemoglobin 11.8 g/dL (12.0-16.0); Mean Corpuscular Hgb Conc 35.3 g/dL (32-36); Mean Corpuscular Volume 89.5 fL (80-100); Mean Platelet Volume 9.1 fL (7.4-10.4); Platelet Count 158 K/uL (130-400); RDW Coefficient of Variation 12.6 % (11.5-14.5); RDW Standard Deviation 40.4 fL (36.4-46.3); Red Blood Count 3.73 M/uL (4.2-5.4); White Blood Count 1.04 K/uL (4.8-10.8)
[2018-10-30 06:59] LABS: Eosinophils # (auto) 0.02 K/uL (0-0.5); Eosinophils % (auto) 1.9 %; Immature Granulocytes # (auto) 0.01 K/uL (0.00-0.02); Lymphocytes # (auto) 0.31 K/uL (1.2-3.4); Lymphocytes % (auto) 29.8 %; Monocytes # (auto) 0.15 K/uL (0.11-0.59); Monocytes % (auto) 14.4 %; Neutrophils # (auto) 0.55 K/uL (1.4-6.5); Neutrophils % (auto) 52.9 %
[2018-10-30 07:05] LABS: BUN Creatinine Ratio 5.6 (10-20); Calcium 8.1 mg/dl (8.5-10.1); Est GFR (African American) 125.6; Est GFR (Non-African American) 108.4; Potassium 3.5 mmol/L (3.5-5.1)
[2018-10-30] MEDS: ENOXAPARIN INJ 40 MG/0.4 ML SYR SQ SCH (08:46)
[2018-10-30] MEDS: OTEZLA~ORDER AWAITING ACTION SCH ×3 (08:47→23:41)
[2018-10-30] MEDS: LINZESS~ORDER AWAITING ACTION SCH ×3 (08:47→23:41)
[2018-10-30] MEDS: OSELTAMIVIR PHOSPHATE 75 MG CAP PO SCH ×2 (08:47→20:27)
[2018-10-30] MEDS: PANTOprazole 40 MG TAB PO SCH (08:48)
[2018-10-30] MEDS: guaiFENesin 600 MG TABCR PO SCH ×2 (08:48→20:27)
[2018-10-30] MEDS: ESCITALOPRAM OXALATE 10 MG TAB PO SCH (08:48)
[2018-10-30] MEDS: POTASSIUM CHLORIDE 40 MEQ in DEXTROSE 5% 1,000 ML IV SCH ×2 (11:34→23:37)
--- NOTE | 2018-10-30 13:01 | Oncology Consultation ---
Date of Consultation October 30, 2018 Assessment & Plan (1) Lymphoma: 53-year-old female, Hematological diagnosis: - Follicular lymphoma, at least stage III disease, I do not have her records for the review, presently she is receiving treatment since late 2016 at [facility]. - Received about 6 months of bendamustine Rituxan combination chemotherapy with partial response. - She had allergic reaction with Rituxan. - Since February 2018, she is on bendamustine every other month, last dose was received in October 2018. Now she's admitted for influenza infection, receiving Tamiflu, gradually recovering from that, improvement of the electrolytes noted. Reviewed blood workup shows progressive neutropenia which is most likely related to the recent bendamustine as well as recent influenza infection. I'm expecting improvement of the blood count to her baseline level in the next 1 to 2 weeks. I would not recommend Neupogen treatment at this time. She should continue to have follow with your primary-care provider and with violin teacher at [facility] for further management of underlying follicular lymphoma. Thanks for the consultation. Norman Zavaleta MD Hem/Onc History of Present Illness Attending Physician: Jimi Castorena MD 53-year-old female, Hematological diagnosis: - Follicular lymphoma diagnosed in late 2016, I do not have records for the review but as per the patient, she had lymphedenopathy in the neck, chest, abdomen, inguinal region. She received systemic chemotherapy (combination of Rituxan and bendamustine) every monthly for about 6 times at [facility] in [place]. - She had allergic reaction with subcutaneous Rituxan, she says that she was in the ICU for few days following that over there. - Recently she is receiving bendamustine every other month since February 2018. - Last dose of chemotherapy with bendamustine received about 2 weeks back (October 2018). She says that she had a flu vaccination in decemberOctober 2018. Now she admitted for influenza infection, she had fever, nausea, vomiting, diarrhea, abdominal cramps, electrolyte imbalance, I saw her at bedside, she sitting comfortably in the chair, no fever at this time, hemodynamically stable, has some abdominal discomfort, no leg edema, no new cardiac or pulmonary symptoms other than some dry cough, some sore throat, no fever at this time, no bleeding from any sites, nausea and vomiting has improved. Allergies Allergy/AdvReac Type Severity Reaction Status Date / Time rituximab Allergy Severe ANAPHYLAXIS Verified 10/28/18 17:34 Home Medications Home Medications Medication Instructions Recorded Confirmed Type albuterol sulfate [ProAir HFA] 2 puff INHALATION Q6H PRN 10/28/18 10/28/18 History alprazolam 0.5 mg PO HS PRN 10/28/18 10/28/18 History apremilast [Otezla Starter] 1 dose PO DIRECTED 10/28/18 10/28/18 History betamethasone valerate 1 applic TOPICAL DIRECTED 10/28/18 10/28/18 History escitalopram oxalate 10 mg PO DAILY 10/28/18 10/28/18 History hydrochlorothiazide 25 mg PO DAILY 10/28/18 10/28/18 History linaclotide [Linzess] 145 mcg PO DAILY 10/28/18 10/28/18 History oseltamivir 75 mg PO BID 10/28/18 10/28/18 History pantoprazole 20 mg PO DAILY 10/28/18 10/28/18 History selenium sulfide 1 applic TOPICAL DIRECTED 10/28/18 10/28/18 History Patient History Medical History Subconjunctival hemorrhage (Chronic) Lymphoma (Chronic) HTN (hypertension) (Chronic) Psoriasis (Chronic) GERD (gastroesophageal reflux disease) (Chronic) IBS (irritable bowel syndrome) (Chronic) Follicular lymphoma (Chronic) Surgical History Bilateral breast implants (Chronic 09/18/12) Family History Mother Hypertension Social History Communication Ability: Effective Beliefs That Will Affect Care: None marital status: Current Living Situation: Spouse Feels Safe at Home: Yes Safety Concerns: Feels Safe At This Time Smoking Status: Never smoker Hx Alcohol Use: Yes Review of Systems REVIEW OF SYSTEMS: GENERAL: No recent change in weight, generalized weakness and fatigue which is gradually getting better,, no fever, sweats or chills at this time SKIN: No skin rash, no bruising. HEAD: No headache, no dizziness. EYES: No change in the vision, no diplopia, EARS: No earache ,no tinnitus, NOSE: No epistaxis, No nasal discharge or stuffiness, MOUTH: sore throat present, no dysphagia, no hoarseness of voice, NECK: No lumps, No swelling in thyroid area. No stiffness. PULMONARY: cough with scanty white expectorant present, No shortness of breath, no hemoptysis, no chest pain, No wheezing. CARDIOVASCULAR: No anginal chest pain, no PND, no orthopnea. No palpitation, no leg edema. No syncope. GASTRIINTESTINAL: No abdominal pain, no nausea or vomiting. diarrhea present, No constipation. No blood in stool or black tarry stools. No abdominal distention. UROLOGIC: No burning urination. No hematuria. MUSCULOSKELETAL: No joint pain, No joint swelling, no muscle weakness. HEMATOLOGIC: No anemia, no bleeding disorder, No bruising. No history of blood transfusion. NEUROLOGIC: No seizures, no focal weakness, no speech difficulty, No memory disturbances. No tingling or numbness of the extremities. PSYCHRIATRIC: No depression. No anxiety. No psychosis. Physical Exam Vital Signs (Past 24 Hours): Last Vital Signs Temp 36.8 C 10/30/18 07:21 Pulse 74 10/30/18 07:21 Resp 20 10/30/18 07:21 BP 111/73 10/30/18 07:21 Pulse Ox 93 10/30/18 07:21 On exam: - Alert and oriented x3, well built woman, not in any distress. - HEENT: no icterus, no pallor, Throat: Normal. - Neck: No palpable cervical lymphadenopathy. - Chest: clear to auscultation. - Abdomen: soft, nontender, no hepatomegaly, no splenomegaly. - No focal neuro deficit. - Extremities: no finger clubbing, no leg edema. Results & Data Laboratory Results Blood workup done on 10/28/2018: - WBC 2500, H&H of 13.2/36, MCV 86, Platelet count of 158,000, ANC 1800 - WBC count dropped down to around 1.0, ANC 550 (10/30/2018) - Hemoglobin level slightly dropped around 11.8 g/dL, platelet count stable around 150 8000. - BUN/creatinine: 3/0.5, normal liver function test on admission. - On admission she had hyponatremia with sodium level of 124, hypokalemia with potassium level of 2.5. - Stool for C. difficile > Negative. Diagnostic Findings CT scan of the abdomen and pelvis with contrast (10/28/2018) - Right-sided nephrolithiasis, no hydronephrosis - No bowel obstruction - No intra-abdominal lymphadenopathy reported. - No liver or spleen lesions identified.
[2018-10-30] MEDS ORDERED: PROMETHAZINE HCL 6.25 MG in SODIUM CHLORIDE 0.9% 50 ML IV PRN (13:27)
--- NOTE | 2018-10-30 15:26 | Hospitalist Progress Note ---
Date of Service October 30, 2018 Assessment & Plan (1) Influenza A: on tamiflu associated with cough, diarrhea cough -Wheezing resolved Cough improving -Continue nebs q6h monitor management of diarrhea as noted below (2) Nausea & vomiting: associated with diarrhea likely viral CT abdomen: enteritis Advance diet to full liquids c diff negative PRN Imodium IV fluids (3) Hyponatremia: 126 up to 135 NSS changed to D5 water nephro consulted Monitor sodium daily (4) Hypokalemia: replaced with PO Supplement and K added to NSS Resolving (5) Follicular lymphoma: last chemo 10/13 from Oncologist in [place] (6) Neutropenia: likely from viral infection, in the setting of chemotherapy ANC further decreased today to 500 Oncologist consulted, not recommending Neupogen at this time Hopefully will see improvement in the next day or so Monitor CBC daily (7) HTN (hypertension): stable HCTZ on hold; To prevent dehydration and hypotension (8) Psoriasis: on Otezla (9) GERD (gastroesophageal reflux disease): Protonix ordered (10) Discharge planning issues: will need PT OT eval lives at home with family (11) DVT prophylaxis: Lovenox SC daily Subjective ff up for flu, cough, diarrhea Seen resting in bedside chair, comfortable, brighter and less weak States breathing slightly improved, as well as dry cough Abdominal discomfort also improving, still has diarrhea, at least 3 episodes of watery stools, no hematochezia or melena denies other symptoms Physical Exam Vital Signs (Past 24 Hours): Last Vital Signs Temp 36.6 C 10/30/18 15:02 Pulse 87 10/30/18 15:02 Resp 20 10/30/18 15:02 BP 116/75 10/30/18 15:02 Pulse Ox 96 10/30/18 15:02 Physical Exam: General- oriented x 3, not in distress, speaks in sentences with no effort or accessory muscle use Eyes- anicteric Neck- no JVD Lungs- clear BS BL No wheezing, no rhonchi Heart- normal rate, regular rhythm; no murmurs Abdomen- normal bowel sounds, nondistended, soft, nontender Extremities- no pretibial edema, no calf tenderness Neuro- alert, oriented x 3; no gross focal neurologic deficits Skin- warm & dry Results & Data Laboratory Results Laboratory Results - last 24 hr 10/29/18 10/29/18 10/30/18 18:05 18:05 05:56 WBC 1.04 L RBC 3.73 L Hgb 11.8 L Hct 33.4 L MCV 89.5 MCH 31.6 MCHC 35.3 RDW Std Deviation 40.4 RDW Coeff of Manisha 12.6 Plt Count 158 MPV 9.1 Immature Gran % (Auto) 1.0 Neut % (Auto) 52.9 Lymph % (Auto) 29.8 Norman % (Auto) 14.4 Eos % (Auto) 1.9 Baso % (Auto) 0.0 Immature Gran # (Auto) 0.01 Neut # (Auto) 0.55 L* Lymph # (Auto) 0.31 L Norman # (Auto) 0.15 Eos # (Auto) 0.02 Baso # (Auto) 0.00 Sodium 136 134 L Potassium 3.4 L Chloride 101 Carbon Dioxide 28 Anion Gap 5.0 BUN 5 L Creatinine 0.61 Est Cr Clr Drug Dosing 112.9 Est GFR ( Amer) 120.0 Est GFR (Non-Af Amer) 103.5 BUN/Creatinine Ratio 8.1 L Glucose 120 H Calcium 8.4 L 10/30/18 05:56 WBC RBC Hgb Hct MCV MCH MCHC RDW Std Deviation RDW Coeff of Manisha Plt Count MPV Immature Gran % (Auto) Neut % (Auto) Lymph % (Auto) Norman % (Auto) Eos % (Auto) Baso % (Auto) Immature Gran # (Auto) Neut # (Auto) Lymph # (Auto) Norman # (Auto) Eos # (Auto) Baso # (Auto) Sodium 135 L Potassium 3.5 Chloride 100 Carbon Dioxide 28 Anion Gap 7.0 BUN 3 L Creatinine 0.53 L Est Cr Clr Drug Dosing 130.0 Est GFR ( Amer) 125.6 Est GFR (Non-Af Amer) 108.4 BUN/Creatinine Ratio 5.6 L Glucose 98 Calcium 8.1 L (1) Nausea & vomiting Vomiting Intractability: non-intractable Vomiting type: unspecified Qualified Code(s): R11.2 - Nausea with vomiting, unspecified
--- NOTE | 2018-10-30 19:20 | Nephrology Progress Note ---
Date of Service October 30, 2018 Assessment & Plan (1) Hyponatremia: serum sodium was 124 on presentation; Na up to 135 this morning -Can stop IV fluids. -no indication at this point to check urine studies -would list hctz as intolerance adn advised pt about this (2) Hypokalemia: likely from vomiting/diarrhea -Recommend po kcl 40meq today -recheck status Subjective Patient with neutropenic sepsis seen in f/u for hyponatremia. She denies any SOB or excessive thirst. No vomitimg. She is eating. Still fatigue. Na is better at 135. Review of Systems All systems reviewed & are unremarkable except as noted in HPI & below Physical Exam Vital Signs (Past 24 Hours): Last Vital Signs Temp 36.8 C 10/30/18 19:13 Pulse 91 H 10/30/18 19:13 Resp 16 10/30/18 19:13 BP 117/79 10/30/18 19:13 Pulse Ox 95 10/30/18 19:13 Physical Exam: General exam: Appears comfortable, no acute distress HEENT: Pupils are equal and reactive to light Neck: No JVD, neck is supple trachea is midline Respiratory system: Clear breath sounds bilaterally. Gastrointestinal: Abdomen is soft, non distended, non tender, bowel sounds are present CVS: Regular rate and rhythm. No murmurs, rubs or gallops Musculoskeletal: No joint or muscle tenderness Extremities: Non tender, no edema, peripheral pulses are present Neuro: Oriented, no tremors, no focal neurological deficits Skin: No rashes Results & Data Laboratory Results WBC 1, Na 135, k 3.5
[2018-10-30] MEDS: ALPRAZolam 0.5 MG TABLET PO PRN (23:37)
[2018-10-31] MEDS: LEVALBUTEROL HCL 0.63 MG/3 ML NEB NEB SCH ×4 (01:42→19:36)
[2018-10-31] MEDS: IPRATROPIUM BROMIDE NEB SOLN 0.02% 2.5 ML VIAL INH SCH ×4 (01:42→19:36)
[2018-10-31 07:00] LABS: Hematocrit (blood only) 33.6 % (37-47); Hemoglobin 11.8 g/dL (12.0-16.0); Mean Corpuscular Hgb Conc 35.1 g/dL (32-36); Mean Corpuscular Volume 90.3 fL (80-100); Mean Platelet Volume 8.7 fL (7.4-10.4); Platelet Count 171 K/uL (130-400); RDW Coefficient of Variation 12.5 % (11.5-14.5); RDW Standard Deviation 40.9 fL (36.4-46.3); Red Blood Count 3.72 M/uL (4.2-5.4); White Blood Count 1.14 K/uL (4.8-10.8)
[2018-10-31] MEDS: guaiFENesin 600 MG TABCR PO SCH ×2 (09:13→20:29)
[2018-10-31] MEDS: OSELTAMIVIR PHOSPHATE 75 MG CAP PO SCH ×2 (09:13→20:29)
[2018-10-31] MEDS: ENOXAPARIN INJ 40 MG/0.4 ML SYR SQ SCH (09:13)
[2018-10-31] MEDS: PANTOprazole 40 MG TAB PO SCH (09:13)
[2018-10-31] MEDS: ESCITALOPRAM OXALATE 10 MG TAB PO SCH (09:13)
[2018-10-31] MEDS: LINZESS~ORDER AWAITING ACTION SCH ×3 (09:13→23:44)
[2018-10-31] MEDS: OTEZLA~ORDER AWAITING ACTION SCH ×3 (09:14→23:44)
[2018-10-31 10:36] LABS: Basophils # (auto) 0.01 K/uL (0-0.2); Basophils % (auto) 0.8 %; Eosinophils # (auto) 0.07 K/uL (0-0.5); Eosinophils % (auto) 5.8 %; Lymphocytes # (auto) 0.41 K/uL (1.2-3.4); Lymphocytes % (auto) 34.2 %; Monocytes % (auto) 16.7 %; Neutrophils # (auto) 0.51 K/uL (1.4-6.5); Neutrophils % (auto) 42.5 %
[2018-10-31] MEDS: POTASSIUM CHLORIDE 40 MEQ in DEXTROSE 5% 1,000 ML IV SCH (11:47)
--- NOTE | 2018-10-31 12:15 | Nephrology Progress Note ---
Date of Service October 31, 2018 Assessment & Plan (1) Hyponatremia: serum sodium was 124 on presentation; Na up to 135 yesterday -I stopped D5 with potassium chloride -We will check a BMP tomorrow. -would list hctz as intolerance adn advised pt about this (2) Hypokalemia: likely from vomiting/diarrhea -We will give po kcl 40meq today -recheck status in the morning Subjective Patient with neutropenic sepsis seen in f/u for hyponatremia. She denies any SOB or excessive thirst. No vomiting. She is eating solid food today. Still has diarrhea but improving. Still fatigue. Seen with her at the bedside. Review of Systems All systems reviewed & are unremarkable except as noted in HPI & below Physical Exam Vital Signs (Past 24 Hours): Last Vital Signs Temp 36.6 C 10/31/18 12:00 Pulse 75 10/31/18 12:00 Resp 18 10/31/18 12:00 BP 105/73 10/31/18 12:00 Pulse Ox 91 10/31/18 12:00 Physical Exam: General exam: Appears comfortable, no acute distress HEENT: Pupils are equal and reactive to light Neck: No JVD, neck is supple trachea is midline Respiratory system: Clear breath sounds bilaterally. Gastrointestinal: Abdomen is soft, non distended, non tender, bowel sounds are present CVS: Regular rate and rhythm. No murmurs, rubs or gallops Musculoskeletal: No joint or muscle tenderness Extremities: Non tender, no edema, peripheral pulses are present Neuro: Oriented, no tremors, no focal neurological deficits Skin: No rashes
[2018-10-31] MEDS ORDERED: POTASSIUM CHLORIDE 20 MEQ TABCR PO ONE (12:30)
--- NOTE | 2018-10-31 15:30 | Hospitalist Progress Note ---
Date of Service October 31, 2018 Assessment & Plan (1) Influenza A: on tamiflu associated with cough, diarrhea cough -Wheezing resolved Cough improving gradually -Continue nebs q6h add Advair management of diarrhea as noted below (2) Nausea & vomiting: associated with diarrhea likely viral CT abdomen: enteritis Advance diet c diff negative PRN Imodium IV fluids given improving (3) Hyponatremia: 126 up to 135 NSS changed to D5 water nephro consulted Monitor sodium daily (4) Hypokalemia: replaced with PO Supplement and K added to NSS Resolving (5) Follicular lymphoma: last chemo 10/13 from Oncologist in [place] (6) Neutropenia: likely from viral infection, in the setting of chemotherapy ANC further decreased today to 500 Oncologist consulted, not recommending Neupogen at this time Hopefully will some improvement soon Monitor CBC daily (7) HTN (hypertension): stable HCTZ on hold; To prevent dehydration and hypotension (8) Psoriasis: on Otezla (9) GERD (gastroesophageal reflux disease): Protonix ordered (10) Discharge planning issues: will need PT OT eval lives at home with family (11) DVT prophylaxis: Lovenox SC daily Subjective ff up for flu with cough and diarrhea seen resting in bed, comfortable states she feels slightly better, still tired still has cough, with clear sputum, no dyspnea diarrhea improving, no abdominal pain no other symptoms Physical Exam Vital Signs (Past 24 Hours): Last Vital Signs Temp 36.6 C 10/31/18 15:03 Pulse 73 10/31/18 15:03 Resp 16 10/31/18 15:03 BP 105/72 10/31/18 15:03 Pulse Ox 95 10/31/18 15:03 Physical Exam: General- oriented x 3, not in distress, speaks in sentences with no effort or accessory muscle use Eyes- anicteric Neck- no JVD Lungs- clear BS BL no rales/wheezing Heart- normal rate, regular rhythm; no murmurs Abdomen- normal bowel sounds, nondistended, soft, nontender Extremities- no pretibial edema, no calf tenderness Neuro- alert, oriented x 3; no gross focal neurologic deficits Skin- warm & dry Results & Data Laboratory Results Laboratory Results - last 24 hr 10/31/18 10/31/18 06:35 06:39 WBC 1.14 L RBC 3.72 L Hgb 11.8 L Hct 33.6 L MCV 90.3 MCH 31.7 MCHC 35.1 RDW Std Deviation 40.9 RDW Coeff of Manisha 12.5 Plt Count 171 MPV 8.7 Immature Gran % (Auto) 0.0 Neut % (Auto) 42.5 Lymph % (Auto) 34.2 [place] % (Auto) 16.7 Eos % (Auto) 5.8 Baso % (Auto) 0.8 Immature Gran # (Auto) 0.00 Neut # (Auto) 0.51 L* Lymph # (Auto) 0.41 L [place] # (Auto) 0.20 Eos # (Auto) 0.07 Baso # (Auto) 0.01 Potassium 4.1 D Magnesium 2.3 (1) Nausea & vomiting Vomiting Intractability: non-intractable Vomiting type: unspecified Qualified Code(s): R11.2 - Nausea with vomiting, unspecified
[2018-10-31 15:50] LABS: Magnesium 2.3 mg/dl (1.8-2.4); Potassium 4.1 mmol/L (3.5-5.1)
[2018-10-31] MEDS: ACETAMINOPHEN 325 MG TAB PO PRN (18:06)
[2018-10-31] MEDS: FLUTICASONE/SALMETEROL 250/50 (ADVAIR) 14 PUFF/1 INHALER INH SCH (20:27)
[2018-10-31] MEDS: ALPRAZolam 0.5 MG TABLET PO PRN (23:48)
[2018-11-01] MEDS: IPRATROPIUM BROMIDE NEB SOLN 0.02% 2.5 ML VIAL INH SCH ×4 (02:14→20:20)
[2018-11-01] MEDS: LEVALBUTEROL HCL 0.63 MG/3 ML NEB NEB SCH ×4 (02:14→20:21)
[2018-11-01 08:11] LABS: Blood Urea Nitrogen < 1 mg/dl (7-18); Calcium 9.2 mg/dl (8.5-10.1); Carbon Dioxide 28 mmol/L (21-32); Chloride 102 mmol/L (98-107); Creatinine Clr Calc Pharmacy 107.1 ml/min; Est GFR (African American) 118.1; Est GFR (Non-African American) 101.9; Glucose 95 mg/dl (70-99); Potassium 4.9 mmol/L (3.5-5.1); Sodium 136 mmol/L (136-145)
[2018-11-01] MEDS: OTEZLA~ORDER AWAITING ACTION SCH ×2 (08:11→15:52)
[2018-11-01] MEDS: LINZESS~ORDER AWAITING ACTION SCH ×2 (08:11→15:52)
[2018-11-01] MEDS: ENOXAPARIN INJ 40 MG/0.4 ML SYR SQ SCH (08:12)
[2018-11-01] MEDS: FLUTICASONE/SALMETEROL 250/50 (ADVAIR) 14 PUFF/1 INHALER INH SCH ×2 (08:13→21:23)
[2018-11-01] MEDS: guaiFENesin 600 MG TABCR PO SCH ×2 (08:13→21:24)
[2018-11-01] MEDS: OSELTAMIVIR PHOSPHATE 75 MG CAP PO SCH ×2 (08:14→21:30)
[2018-11-01] MEDS: ESCITALOPRAM OXALATE 10 MG TAB PO SCH (08:14)
[2018-11-01] MEDS: PANTOprazole 40 MG TAB PO SCH (08:14)
[2018-11-01 16:33] LABS: Mean Corpuscular Hgb Conc 34.3 g/dL (32-36); Mean Corpuscular Volume 91.4 fL (80-100); Mean Platelet Volume 9.3 fL (7.4-10.4); Platelet Count 182 K/uL (130-400); RDW Coefficient of Variation 12.6 % (11.5-14.5); RDW Standard Deviation 42.2 fL (36.4-46.3); Red Blood Count 3.83 M/uL (4.2-5.4); White Blood Count 1.62 K/uL (4.8-10.8)
[2018-11-01 16:51] LABS: RBC Morphology Unremarkable
[2018-11-01 16:52] LABS: ALC (manual) 0.39 K/uL (1.2-3.4); Eosinophils # (manual) 0.09 K/uL (0-0.5); Eosinophils % (manual) 5.4 %; Lymphocytes # (manual) 0.19 K/uL (1.2-3.4); Lymphocytes % (manual) 11.7 %; Monocytes # (manual) 0.16 K/uL (0.11-0.59); Monocytes % (manual) 9.9 %; Neutrophils % (manual) 60.4 %
--- NOTE | 2018-11-01 17:01 | Hematology/Oncology Prog Note ---
Date of Service November 01, 2018 Assessment & Plan (1) Lymphoma: 53-year-old female, Hematological diagnosis: - Follicular lymphoma, diagnosed in late 2017, presently receiving systemic treatment at [facility] in [place], earlier she received about 6 months of bendamustine Rituxan and now she is receiving bendamustine every other month, last dose was received in december. - Admitted for influenza infection, receiving Tamiflu, - Had a neutropenia which is related to the recent treatment with bendamustine. I saw her bedside today, she sitting comfortable in the bed, no fever, hemodynamically stable, has some cough, some sinus symptoms, sore throat but it is gradually getting better, ambulating slowly in the room, no leg edema, earlier she had diarrhea which is gradually getting better. No bleeding from in sites, no blood in the stool. Blood workup done on 11/01/2018: - WBC 1600, H&H of 12/35, Platelet count of 182,000 - BUN/creatinine: less than 1/0.6, calcium 9.2 Stool culture > Negative. - Blood culture negative. Gradual improvement of the blood count is noted which is expected in her case. She will continue to have follow with your primary-care provider and tile professional at [facility] [address] in [place]. Norman Zavaleta MD Hem/Onc Physical Exam Vital Signs (Past 24 Hours): Last Vital Signs Temp 36.3 C L 11/01/18 15:44 Pulse 102 H 11/01/18 15:44 Resp 20 11/01/18 15:44 BP 113/74 11/01/18 15:44 Pulse Ox 92 11/01/18 15:44
[2018-11-01] MEDS: ACETAMINOPHEN 325 MG TAB PO PRN (18:26)
--- NOTE | 2018-11-01 19:36 | Hospitalist Progress Note ---
Date of Service November 01, 2018 Assessment & Plan (1) Influenza A: on tamiflu associated with cough, diarrhea cough -Wheezing resolved Cough improving gradually -Continue nebs q6h added Advair continues to improve overall management of diarrhea as noted below (2) Nausea & vomiting: associated with diarrhea likely viral CT abdomen: enteritis Advance diet to regular today c diff negative PRN Imodium IV fluids given further improving (3) Hyponatremia: 126 up to 135 NSS changed to D5 water nephro consulted Monitor sodium daily (4) Hypokalemia: replaced with PO Supplement and K added to NSS Resolved (5) Follicular lymphoma: last chemo 10/13 from Oncologist in [place] (6) Neutropenia: likely from viral infection, in the setting of chemotherapy ANC further improved to 908 Oncologist consulted, not recommending Neupogen at this time (7) HTN (hypertension): stable HCTZ on hold; To prevent dehydration and hypotension (8) Psoriasis: on Otezla (9) GERD (gastroesophageal reflux disease): Protonix ordered (10) Discharge planning issues: will need PT OT eval lives at home with family (11) DVT prophylaxis: Lovenox SC daily Subjective ff up for flu with cough and diarrhea seen resting in bed, comfortable family at bedside states she continues to feel improved cough improving further no abdominal pain, stools getting formed no other symptoms Physical Exam Vital Signs (Past 24 Hours): Last Vital Signs Temp 36.8 C 11/01/18 19:32 Pulse 100 H 11/01/18 19:32 Resp 18 11/01/18 19:32 BP 108/71 11/01/18 19:32 Pulse Ox 92 11/01/18 19:32 Physical Exam: General- oriented x 3, not in distress, speaks in sentences with no effort or accessory muscle use Eyes- anicteric Neck- no JVD Lungs- clear breath sounds bilaterally, no rhonchi, no wheeze Heart- normal rate, regular rhythm; no murmurs Abdomen- normal bowel sounds, nondistended, soft, nontender Extremities- no pretibial edema, no calf tenderness Neuro- alert, oriented x 3; no gross focal neurologic deficits Skin- warm & dry Results & Data Laboratory Results Laboratory Results - last 24 hr 11/01/18 11/01/18 07:09 15:22 WBC 1.62 L RBC 3.83 L Hgb 12.0 Hct 35.0 L MCV 91.4 MCH 31.3 MCHC 34.3 RDW Std Deviation 42.2 RDW Coeff of Manisha 12.6 Plt Count 182 MPV 9.3 Neutrophils % (Manual) 60.4 Lymphocytes % (Manual) 11.7 Reactive Lymphs % (Man) 12.6 Monocytes % (Manual) 9.9 Eosinophils % (Manual) 5.4 Neutrophils # (Manual) 0.98 L Total Absolute Neuts 0.98 L* Lymphocytes # (Manual) 0.19 L Reactive Lymphs # 0.20 Total Abs Lymphocytes 0.39 L Monocytes # (Manual) 0.16 Eosinophils # (Manual) 0.09 RBC Morphology Unremarkable Sodium 136 Potassium 4.9 D Chloride 102 Carbon Dioxide 28 Anion Gap 6.0 BUN < 1 L Creatinine 0.64 Est Cr Clr Drug Dosing 107.1 Est GFR ( Amer) 118.1 Est GFR (Non-Af Amer) 101.9 BUN/Creatinine Ratio TNP Glucose 95 Calcium 9.2 (1) Nausea & vomiting Vomiting Intractability: non-intractable Vomiting type: unspecified Qualified Code(s): R11.2 - Nausea with vomiting, unspecified
[2018-11-02] MEDS: LINZESS~ORDER AWAITING ACTION SCH ×2 (00:11→07:30)
[2018-11-02] MEDS: OTEZLA~ORDER AWAITING ACTION SCH ×2 (00:11→07:31)
[2018-11-02] MEDS: IPRATROPIUM BROMIDE NEB SOLN 0.02% 2.5 ML VIAL INH SCH ×3 (02:04→13:59)
[2018-11-02] MEDS: LEVALBUTEROL HCL 0.63 MG/3 ML NEB NEB SCH ×3 (02:04→13:59)
[2018-11-02] MEDS: ENOXAPARIN INJ 40 MG/0.4 ML SYR SQ SCH (07:54)
[2018-11-02] MEDS: OSELTAMIVIR PHOSPHATE 75 MG CAP PO SCH (07:55)
[2018-11-02] MEDS: guaiFENesin 600 MG TABCR PO SCH (07:55)
[2018-11-02] MEDS: FLUTICASONE/SALMETEROL 250/50 (ADVAIR) 14 PUFF/1 INHALER INH SCH (07:55)
[2018-11-02] MEDS: PANTOprazole 40 MG TAB PO SCH (07:55)
[2018-11-02] MEDS: ESCITALOPRAM OXALATE 10 MG TAB PO SCH (07:55)
[2018-11-02 13:36] LABS: Basophils # (auto) 0.01 K/uL (0-0.2); Basophils % (auto) 0.5 %; Eosinophils # (auto) 0.06 K/uL (0-0.5); Hematocrit (blood only) 36.3 % (37-47); Hemoglobin 12.9 g/dL (12.0-16.0); Lymphocytes # (auto) 0.61 K/uL (1.2-3.4); Lymphocytes % (auto) 30.8 %; Mean Corpuscular Hgb Conc 35.5 g/dL (32-36); Mean Corpuscular Volume 90.3 fL (80-100); Mean Platelet Volume 9.2 fL (7.4-10.4); Monocytes # (auto) 0.19 K/uL (0.11-0.59); Monocytes % (auto) 9.6 %; Neutrophils # (auto) 1.11 K/uL (1.4-6.5); Neutrophils % (auto) 56.1 %; Platelet Count 226 K/uL (130-400); RDW Coefficient of Variation 12.5 % (11.5-14.5); RDW Standard Deviation 41.4 fL (36.4-46.3); Red Blood Count 4.02 M/uL (4.2-5.4); White Blood Count 1.98 K/uL (4.8-10.8)
--- NOTE | 2018-11-02 15:04 | Hospitalist Progress Note ---
Date of Service November 02, 2018 delayed entry date of service as noted above Assessment & Plan (1) Influenza A: on tamiflu associated with cough, diarrhea cough -Wheezing resolved Cough much improved given nebs q6h added Advair improved overall continue Advair and PRN albuterol at home management of diarrhea as noted below (2) Nausea & vomiting: associated with diarrhea likely viral CT abdomen: enteritis Advanced diet , tolerated well c diff negative PRN Imodium IV fluids given diarrhea, resolved (3) Hyponatremia: 126 up to 135 NSS changed to D5 water nephro consulted advised to stop HCTZ and list as adverse reaction (4) Hypokalemia: replaced with PO Supplement and K added to NSS Resolved (5) Follicular lymphoma: last chemo 10/13 from Oncologist in [place] (6) Neutropenia: likely from viral infection, in the setting of chemotherapy ANC further improved to 908 Oncologist consulted, not recommending Neupogen at this time repeat CBC on ff up with PCP in 3-5 days (7) HTN (hypertension): stable STOP HCTZ as this caused hyponatremia (8) Psoriasis: on Otezla (9) GERD (gastroesophageal reflux disease): Protonix ordered (10) Discharge planning issues: d/c home advised to ff up with PCP 3-5 days advised to ff up with Oncologist as scheduled discussed plan of care with patient and she is agreeable/comfortable all questions answered (11) DVT prophylaxis: Lovenox SC daily Subjective ff up for flu with cough and diarrhea seen resting in bed, comfortable family at bedside states she feels better overall less cough, no dyspnea no chest pain no abdominal pain, stools getting formed denies other symptoms states she is ready and would like to be discharged Physical Exam Vital Signs (Past 24 Hours): Last Vital Signs Temp 36.7 C 11/02/18 11:38 Pulse 94 H 11/02/18 13:59 Resp 16 11/02/18 13:59 BP 115/84 11/02/18 11:38 Pulse Ox 97 11/02/18 13:59 Physical Exam: General- oriented x 3, not in distress, speaks in sentences with no effort or accessory muscle use Eyes- anicteric Neck- no JVD Lungs- clear breath sounds bilaterally no rhonchi/wheeze Heart- normal rate, regular rhythm; no murmurs Abdomen- normal bowel sounds, nondistended, soft, nontender Extremities- no pretibial edema, no calf tenderness Neuro- alert, oriented x 3; no gross focal neurologic deficits Skin- warm & dry Results & Data Laboratory Results all noted and reviewed (1) Nausea & vomiting Vomiting Intractability: non-intractable Vomiting type: unspecified Qualified Code(s): R11.2 - Nausea with vomiting, unspecified
--- NOTE | 2018-11-02 15:36 | Discharge Summary ---
Date of Service November 02, 2018 Admission HPI Per Admitting Provider 53-year-old female who presents the ED with fever, nausea, vomiting, diarrhea. Patient was seen at [facility] in [place] yesterday and diagnosed with influenza A. Patient was started on Tamiflu. Of note, patient has follicular lymphoma and is currently undergoing chemo, last treatment was on October 13 (bendumustine, which she receives every 8 weeks at [facility] in [place]). Patient reports she has been sick for the past 4 days. She reports fever, body aches, chills. She has had vomiting and diarrhea but denies any hematemesis, coffee-ground emesis, bright blood per rectum, dark tarry s tools. She denies any recent sick contacts. She reports chest pain but reports that her body aches all over. She reports some mild lightheadedness and dizziness while standing but denies any syncopal event. No urinary symptoms. In the ED, patient was found to have electrolyte abnormalities including hyponatremia with sodium 124 and hypokalemia with potassium 2.5. Patient was given IVF, potassium replacement, IV Toradol, IV Zofran. Admission Exam Per Admitting Provider Vital Signs (Past 24 Hours): Last Vital Signs Temp 36.9 C 10/28/18 16:55 Pulse 74 10/28/18 19:05 Resp 16 10/28/18 19:05 BP 135/91 10/28/18 19:05 Pulse Ox 94 10/28/18 19:05 Constitutional: WD/WN, vitals as above + ill appearing Eyes: PERRL, conjunctivae normal, anicteric sclerae ENMT: external ear and nose normal, oropharynx normal Respiratory: normal respiratory effort, lungs clear to auscultation Cardiovascular: Rate/Rhythm: regular rate and regular rhythm Vessels: n ormal peripheral pulses Extremities: no edema Chest (Breasts): Chest: + vascular access device or port (Port noted to right chest(currently not accessed), no surrounding erythema or drainage) Gastrointestinal (Abdomen): normal bowel sounds, soft, nontender, no hepatosplenomegaly Musculoskeletal: no cyanosis or clubbing, extremities motor strength 5/5 Skin: no rashes, warm and dry Neurologic: PERRL, EOMI, accommodation nl, no face palsy, no dysarthria Psychiatric: A+Ox3, euthymic affect Principal Diagnosis INFLUENZA WITH BRONCHITIS, DIARRHEA Discharge Exam Vital Signs (Past 24 Hours): Last Vital Signs Temp 36.7 C 11/02/18 11:38 Pulse 94 H 11/02/18 13:59 Resp 16 11/02/18 13:59 BP 115/84 11/02/18 11:38 Pulse Ox 97 11/02/18 13:59 Physical Exam: General- oriented x 3, not in distress, speaks in sentences with no effort or accessory muscle use Eyes- anicteric Neck- no JVD Lungs- clear breath sounds bilaterally no rhonchi/wheeze Heart- normal rate, regular rhythm; no murmurs Abdomen- normal bowel sounds, nondistended, soft, nontender Extremities- no pretibial edema, no calf tenderness Neuro- alert, oriented x 3; no gross focal neurologic deficits Skin- warm & dry Discharge Data Allergies Allergy/AdvReac Type Severity Reaction Status Date / Time rituximab Allergy Severe ANAPHYLAXIS Verified 10/28/18 17:34 hydrochlorothiazide AdvReac Intermediate other Verified 11/02/18 15:04 Consultations 10/28/18 18:20 ED Decision to Admit Stat 10/29/18 04:43 Consult Nephrology Routine 10/30/18 08:21 Consult Hematology Routine Ordered Studies XR chest 1V portable CLINICAL HISTORY: weakness dyspnea COMPARISON STUDY: 02/19/2018 FINDINGS: Central catheter in the superior vena cava. Lungs are clear. Diap hragms smooth. Minimal platelike atelectasis right midlung. IMPRESSION: No acute process. 10/28/18 23:33 CT OF THE ABDOMEN AND PELVIS WITH CONTRAST CLINICAL HISTORY: Abdominal pain. COMPARISON STUDY: CT of the abdomen and pelvis 10/19/2012. Right upper quadrant ultrasound April 09, 2013. TECHNIQUE: Following IV administration of 92 mL of Optiray-320, axial images of the abdomen and pelvis were obtained from the lung bases to the proximal femurs. Images were reviewed in the axial, sagittal, and coronal planes. IV contrast was administered without complication. Automated exposure control was utilized for the study. A dose lowering technique was utilized adhering to the principles of ALARA. CT DOSE: 452.38 mGy.cm FINDINGS: Bilateral breast implants are partially imaged. The liver, spleen, adrenal glands and pancreas are unremarkable. There is no pancreatic or biliary ductal dilatation. Several right renal calculi measure up to 5 mm. There are no ureteral catheter. There is no hydronephrosis or hydroureter. The nephrograms are symmetric. There is mild plaque of the abdominal aorta. There is trace fluid within the pelvis. Note is made of mild bladder wall thickening. The appendix is not visualized. No pneumatosis, free air or portal venous gas is present. The small large bowel are slightly fluid-filled. There is no bowel wall thickening. No suspicious osseous lesions are noted. There is no lymphadenopathy. IMPRESSION: 1. Right-sided nephrolithiasis. No ureteral calculi. No hydronephrosis. 2. No bowel obstruction. No bowel wall thickening. Minimal fluid within the small bowel which is likely within normal limits however an enteritis could have this appearance. 3. Trace fluid within the pelvis. 4. Bladder wall thickening which could be correlated with urinalysis to exclude cystitis. Hospital Course (1) Influenza A: on tamiflu associated with cough, diarrhea Possible Bronchitis - CXR: no pneumonia -Wheezing resolved Cough improving gradually given nebs q6h added Advair continues to improve overall - continue Advair, PRN Albuterol as outpatient management of diarrhea as noted below (2) Nausea & vomiting: associated with diarrhea likely viral CT abdomen: enteritis Advanced diet gradually c diff negative PRN Imodium IV fluids given resolved (3) Hyponatremia: 126 up to 135 NSS changed to D5 water nephro consulted advised to STOP HCTZ, list as adverse reaction with HCTZ: hyponatremia repeat basic metabolic profile on ff up with PCP (4) Hypokalemia: replaced with PO Supplement and K added to NSS Resolved (5) Follicular lymphoma: last chemo 10/13 from Oncologist in [place] (6) Neutropenia: likely from viral infection, in the setting of chemotherapy ANC further improved to 908 Oncologist consulted, not recommending Neupogen at this time repeat CBC on ff up with PCP (7) HTN (hypertension): stable advised to STOP HCTZ, list as adverse reaction with HCTZ: hyponatremia (8) Psoriasis: on Otezla (9) GERD (gastroesophageal reflux disease): Protonix ordered Total Time Total Time Spent Total Time Spent (In Minutes): 35 mins Discharge Plan Discharge Items Patient Disposition: Home - Self-Care Reason For Visit: FLU A,HYPOKALEMIA Discharge Diagnosis: INFLUENZA, WITH BRONCHITIS, DIARRHEA Condition: Good Discharge Goals: Diagnostic testing and Therapeutic intervention Activity: As commented below Activity Comment: NO HEAVY EXERTION UNTIL RE-EVALUATED BY PRIMARY CARE PHYSICIAN Lifting: Wait until after follow-up appointment Exercise/Sports: Wait until after follow-up appointment Driving/Machine Use Comment: NO DRIVING UNTIL RE-EVALUATED BY PRIMARY CARE PHYSICIAN Non-emergency contact: Primary Care Provider Call non-emergency contact if: you have any medication questions, your symptoms worsen, your pain is not controlled, your pain is worsening, your pain is unusual for you, your pain is concerning for you and you have a fever Follow-up/Referrals: Jeffrey Chance DO [Primary Care Provider] - Diet: Regular Addtl Provider Instructions: PLEASE FOLLOW UP WITH PRIMARY CARE PHYSICIAN IN 3-5 DAYS. CALLL PRIMARY CARE PHYSICIAN OR RETURN TO ER IMMEDIATELY IF WITH RECURRENCE/WORSENING OF SYMPTOMS, COUGH, FEVER, ABDOMINAL PAIN, DIARRHEA. DRINK PLENTY OF FLUIDS. Prescriptions: New fluticasone-salmeterol [Advair Diskus] 250-50 mcg/dose Blister With Device 1 puff Inhalation BID 7 Days Qty: 1 RF: 1 guaifenesin [Mucinex] 600 mg Tablet Extended Release 12hr 600 mg PO Q12 7 Days Qty: 14 RF: 0 Continued pantoprazole 20 mg Tablet,Delayed Release (Dr/Ec) 20 mg PO DAILY RF: 0 alprazolam 0.5 mg Tablet 0.5 mg PO HS PRN (Reason: Anxiety) RF: 0 betamethasone valerate 0.1 % Cream 1 applic TOPICAL DIRECTED RF: 0 albuterol sulfate [ProAir HFA] 90 mcg/actuation Hfa Aerosol Inhaler 2 puff INHALATION Q6H PRN (Reason: Shortness Of Breath Or Wheezing) RF: 0 escitalopram oxalate 10 mg Tablet 10 mg PO DAILY RF: 0 Linzess 145 mcg Capsule 145 mcg PO DAILY RF: 0 Otezla Starter 10 mg (4)-20 mg (4)-30 mg(19) Tablets,Dose Pack 1 dose PO DIRECTED RF: 0 selenium sulfide 2.5 % Lotion 1 applic TOPICAL DIRECTED RF: 0 oseltamivir 75 mg Capsule 75 mg PO BID Qty: 7 RF: 0 Discontinued oseltamivir 75 mg Capsule 75 mg PO BID RF: 0 hydrochlorothiazide 25 mg Tablet 25 mg PO DAILY RF: 0 Stand-Alone Forms: [facility] Discharge Orders: Discharge Order (Routine); Ordered 03/05/19 Ordered By: Jimi Castorena Admission Data Admit Date/Time: 10/28/18 19:00 Attending Provider: Jimi Castorena Admit Provider: Jerry Martínez Primary Care Provider: Jeffrey Chance Other Providers: Ashish Stone ; Ann Marin ; Eder Vaca ; Brett Valenzuela I ; Lisa Torres ; Urszula Jim ; Derik Mosher. ; Tammy Moore ; Norman Zavaleta ; Gurpreet Becerra Service: Telemetry Other Interventions: Discharge Summary Assessment (RN) Last Done: 11/02/18 15:49 DC Date/Time DO NOT enter until pt leaves facility: 11/02/18 16:20
== END 2018-11-02 16:20 | disposition home or self-care (01) | DRG 153 ==
LOC: ED 16:53 → SUATTDRO 19:00 → 2W 19:00
DX: E87.1 Hypo-osmolality and hyponatremia; I10 Essential (primary) hypertension; K52.9 Noninfective gastroenteritis and colitis, unspecified; C82.90 Follicular lymphoma, unspecified, unspecified site; R11.2 Nausea with vomiting, unspecified; J11.1 Influenza due to unidentified influenza virus with other respiratory manifestations; K21.9 Gastro-esophageal reflux disease without esophagitis; E87.6 Hypokalemia; D70.9 Neutropenia, unspecified

== ENCOUNTER 2019-10-10 16:27 | Observation (INO) ==
[2019-10-10] MEDS ORDERED: PROMETHAZINE 12.5 MG/50.5 ML BAG IV STA (16:54)
[2019-10-10] MEDS ORDERED: MoRPHine SULFATE 10 MG/ML CARP/VIAL IV STA ×2 (16:54→18:29)
[2019-10-10] MEDS ORDERED: SODIUM CHLORIDE 0.9% 1000ML 1,000 ML IV SCH (16:55)
--- NOTE | 2019-10-10 17:02 | Emergency Department Note ---
ED Provider Note CHIEF COMPLAINT: Right flank pain, nausea and vomiting since yesterday HISTORY OF PRESENT ILLNESS: Patient is a 53-year-old female with past medical history significant for lymphoma currently being treated with chemotherapy, IBS, psoriasis, anxiety and depression who is status post hysterectomy and appendectomy who presents the emergency department for evaluation of right flank pain. Patient states that she has some aching in her right low back yesterday, but it was manageable. She thought that it might be musculoskeletal. Pain progressively worsened today began to radiate around to the right lower quadrant and groin. Around 1430 this afternoon the pain markedly increased, causing her to become nauseous, she started vomiting around 1500. She notes her pain is constant, sharp and stabbing and rates it a 10/10. She is unable to get comfortable secondary to pain. She denies any dysuria, frequency, urgency or hematuria and she is voiding without difficulty. Bowel movements have been normal for her. No fever or chills. As stated above, she is undergoing chemotherapy for a diagnosis of lymphoma. She is being followed by providers in the [facility]. She last had chemotherapy 1 week ago. She is on Zofran 8 mg twice daily regularly. She did not try taking any medications nor performing any interventions for discomfort. REVIEW OF SYSTEMS: Review of systems as per HPI. All other systems reviewed were negative. 10 systems reviewed. PMH: Electronic medical records are reviewed and summarized as above/below. See Problem List. SOCIAL HISTORY: Patient lives at home with her spouse. Non-smoker. PHYSICAL EXAM: Vital Signs: Reviewed Nurse's notes. CONSTITUTIONAL: Patient is an uncomfortable appearing 54-year-old female who is awake and alert and in obvious distress due to her discomfort. She is nauseous and dry heaving in the exam room. EYES: Pupils equal, round, reactive to light and accommodation. EOMs intact without nystagmus. Sclera are anicteric. ENT: Tympanic membranes intact, with normal landmarks. External canals are clear. Oral and nasopharynx are clear. Mucous membranes are moist, no lesions, tongue and gums appear normal. CARDIOVASCULAR: Regular rate and rhythm, with normal S1 and S2, no murmur or gallop or rub is heard. No carotid bruits auscultated. No JVD. Peripheral pulses easily palpable. RESPIRATORY: Breath sounds equal and clear to auscultation without wheezes, rales, or rhonchi heard. Full and equal chest expansion without accessory muscle use or retractions. ABDOMEN: Bowel sounds are present. Well-healed surgical scars are noted. Abdomen is soft, nondistended, mildly tender in the right lower abdomen without guarding or rebound. Positive right CVA tenderness. INTEGUMENTARY: No lesions or rash, normal skin turgor. LYMPH: No lymphadenopathy. EMERGENCY DEPARTMENT COURSE: The patient was seen and assessed as above. Old records were reviewed. She presents the emergency department for evaluation of colicky right flank pain with associated nausea and vomiting. IV lock was initiated and laboratory studies were collected. She was hydrated with normal saline solution. She was medicated with Phenergan 12.5 mg IV and morphine 6 mg IV. CBC with differential, CMP, lipase and urinalysis were ordered. Noncontrast CT scan of the abdomen pelvis was performed to evaluate her right flank pain. Laboratory studies noted a normal white count at 7000, no anemia. Electrolytes are within normal limits. BUN 11, creatinine 0.85. LFTs and lipase are normal. Urine microscopy notes hematuria, without nitrates, WBCs or leuk esterase. Patient was reassessed when she returned from CT scan. She reported slight improvement of her pain, but still rated it a 7/10. She was no longer nauseous. She was given a second dose of morphine [address] scan of the abdomen pelvis notes a 7 x 5 mm right UPJ stone with moderate right hydronephrosis, and a 5 mm right intrarenal calculus. I did order a KUB x-ray at this time for urologic follow-up. Laboratory and diagnostic imaging studies were reviewed with the patient and her spouse, and discussed with ED attending, Dr. Pearce. It was felt that the patient would benefit from admission/observation for pain management as well as the size and location of the stone as she may require urologic intervention. I did [facility] Dr[facility] did ask that the patient be made NPO pending possible surgical intervention tomorrow. Patient was made aware that she would be brought into the hospital for further care and management. She was comfortable with this. Differential diagnoses entertained included UTI, pyelonephritis, renal colic, bowel obstruction, perforation, mass or malignancy, musculoskeletal pain, feliz gles, among others. Impression & Plan Calculus of proximal right ureter, Intractable pain Past Med/Surg History Medical History Follicular lymphoma (Chronic) GERD (gastroesophageal reflux disease) (Chronic) HTN (hypertension) (Chronic) IBS (irritable bowel syndrome) (Chronic) Lymphoma (Chronic) Psoriasis (Chronic) Subconjunctival hemorrhage (Resolved) Surgical History Bilateral breast implants (Chronic 09/18/12) History of appendectomy History of hysterectomy Social History Preferred Language: Malagasy Communication Ability: Effective Beliefs That Will Affect Care: None marital status: Current Living Situation: Spouse Feels Safe at Home: Yes Smoking Status: Never smoker Hx Alcohol Use: Yes Alcohol type: beer Results & Data Vital Signs Vital Signs - 24 hr 10/10/19 16:32 10/10/19 17:25 10/10/19 18:42 Temperature 36.4 C L Temperature Source Oral Pulse Rate 78 Pulse Rate [Right Finger] 63 69 Respiratory Rate 18 22 14 Respiratory Effort / Characteristics Non-Labored Spontaneous Non-Labored Spontaneous Respiratory Depth Normal Normal Normal Blood Pressure 155/90 H Blood Pressure [Right Arm] 146/91 H 125/82 Blood Pressure Mean 111 Blood Pressure Mean [Right Arm] 109 96 Blood Pressure Position [Right Arm] Lying Pulse Oximetry 97 97 93 Oxygen Delivery Method Room Air Room Air Room Air Sepsis Recent Fever Within 48 Hours No Sepsis Action Taken by Nursing No Action Required Home Medications Current Medication List: was personally reviewed by me Laboratory Data Attestation: I reviewed the patient's lab results. Result diagrams: 10/10/19 17:10 10/10/19 17:10 Lab Results 10/10/19 10/10/19 10/10/19 Range/Units 16:53 17:10 17:10 WBC 7.05 (4.8-10.8) K/uL RBC 4.66 (4.2-5.4) M/uL Hgb 14.2 (12.0-16.0) g/dL Hct 40.8 (37-47) % MCV 87.6 (80-100) fL MCH 30.5 (25-34) pg MCHC 34.8 (32-36) g/dL RDW Std Deviation 40.7 (36.4-46.3) fL RDW Coeff of Manisha 12.7 (11.5-14.5) % Plt Count 215 (130-400) K/uL MPV 9.4 (7.4-10.4) fL Immature Gran % (Auto) 0.6 % Neut % (Auto) 79.2 % Lymph % (Auto) 10.1 % [place] % (Auto) 8.9 % Eos % (Auto) 1.1 % Baso % (Auto) 0.1 % Immature Gran # (Auto) 0.04 H (0.00-0.02) K/uL Neut # (Auto) 5.58 (1.4-6.5) K/uL Lymph # (Auto) 0.71 L (1.2-3.4) K/uL [place]y # (Auto) 0.63 H (0.11-0.59) K/uL Eos # (Auto) 0.08 (0-0.5) K/uL Baso # (Auto) 0.01 (0-0.2) K/uL Sodium 134 L (136-145) mmol/L Potassium 3.9 (3.5-5.1) mmol/L Chloride 103 (98-107) mmol/L Carbon Dioxide 24 (21-32) mmol/L Anion Gap 8.0 (3-11) BUN 11 (7-18) mg/dl Creatinine 0.85 (0.6-1.2) mg/dl Est Cr Clr Drug Dosing 67.9 ml/min Est GFR ( Amer) 90.0 Est GFR (Non-Af Amer) 77.7 BUN/Creatinine Ratio 13.4 (10-20) Glucose 126 H (70-99) mg/dl Calcium 9.5 (8.5-10.1) mg/dl Total Bilirubin 0.7 (0.2-1) mg/dl AST 16 (15-37) U/L ALT 34 (12-78) U/L Alkaline Phosphatase 76 (45-117) U/L Total Protein 7.7 (6.4-8.2) gm/dl Albumin 4.3 (3.4-5.0) gm/dl Globulin 3.4 (2.5-4.0) gm/dl Albumin/Globulin Ratio 1.3 (0.9-2) Lipase 94 (73-393) U/L Urine Color Dark Yellow Urine Appearance Turbid A (Clear) Urine pH 5.0 (4.5-7.5) Ur Specific [place] 1.020 (1.000-1.030) Urine Protein Trace H (Negative) Urine Glucose (UA) Negative (Negative) Urine Ketones Negative (Negative) Urine Blood 3+ H (Negative) Urine Nitrite Negative (Negative) Urine Bilirubin Negative (Negative) Urine Urobilinogen Negative (Negative) Ur Leukocyte Esterase Negative (Negative) Urine WBC (Auto) 1-5 (0-5) /hpf Urine RBC (Auto) >30 H (0-4) /hpf U Hyaline Cast (Auto) 1-5 (0-5) /lpf U Epithel Cells (Auto) >30 H (0-5) /lpf Urine Bacteria (Auto) Negative (Negative) Administered Medications Sodium Chloride (Nss 1000ml) 1,000 mls @ 125 mls/hr IV .Q8H GENA Stop: 11/09/19 20:59 Last Admin: 10/10/19 21:02 Dose: 125 mls/hr Documented by: [id number] Discontinued Medications Sodium Chloride (Nss 1000ml) 1,000 mls @ 999 mls/hr IV .Q1H1M GENA Stop: 10/10/19 17:55 Last Infusion: 10/10/19 18:27 Dose: 0 mls/hr Documented by: [id number] Admin: 10/10/19 17:24 Dose: 999 mls/hr Documented by: [id number] Promethazine HCl (Phenergan) 12.5 mg in 50.5 mls @ 202 mls/hr IV NOW STA Stop: 10/10/19 17:08 Last Infusion: 10/10/19 17:40 Dose: 0 mls/hr Documented by: [id number] Admin: 10/10/19 17:24 Dose: 202 mls/hr Documented by: [id number] Morphine Sulfate (Morphine Sulfate) 6 mg IV NOW STA Stop: 10/10/19 16:55 Last Admin: 10/10/19 17:20 Dose: 6 mg Documented by: [id number] Morphine Sulfate (Morphine Sulfate) 6 mg IV NOW STA Stop: 10/10/19 18:30 Last Admin: 10/10/19 18:36 Dose: 6 mg Documented by: [id number] Imaging Data Attestation: I personally reviewed and interpreted this imaging study as follows: Radiologist's Impression: CT OF THE ABDOMEN AND PELVIS WITHOUT CONTRAST CLINICAL HISTORY: Right flank pain. COMPARISON STUDY: CT of the abdomen and pelvis May 11, 2019. TECHNIQUE: Axial images of the abdomen and pelvis were obtained without IV contrast. Images were reviewed in the axial, sagittal, and coronal planes. Automated exposure control was utilized for the study. A dose lowering technique was utilized adhering to the principles of ALARA. FINDINGS: A 7 mm x 5 mm right ureteropelvic junction calculus results in modera te right hydronephrosis. There is mild perinephric infiltration. Note is made of a 5 mm calculus within the midpole of the right kidney. No additional ureteral calculi are noted. There are gonadal phleboliths. There are no left-sided urinary calculi. There is no left hydronephrosis. Evaluation of the remainder of the abdomen and pelvis is suboptimal on this unenhanced exam. Mild bladder wall thickening is unchanged. The liver, spleen, adrenal glands and pancreas are unremarkable. There is no evidence for a bowel obstruction. There is no lymphadenopathy or ascites. There are no suspicious osseous lesions. IMPRESSION: 1. 7 mm x 5 mm right ureteropelvic junction calculus which results in moderate right hydronephrosis. 2. 5 mm right renal calculus. 3. No change in bladder wall thickening. Blood Pressure Blood Pressure Findings: Elevated blood pressure Blood Pressure Disposition: elevated BP felt to be situational Discharge Plan Visit Data *Final* Discharge Date/Time: 10/10/19 20:10 Chief Complaint: Flank Pain Stated Complaint: SEVERE BACK PAIN R SIDE ED Provider: Jonah Pearce ED Midlevel Provider: Natalie Galicia Discharge Problem: Calculus of proximal right ureter, Intractable pain Patient Disposition: Admitted As Inpatient Discharge Instructions Interventions: ED Discharge Assessment Last Done: 10/10/19 20:10
[2019-10-10 17:20] LABS: Basophils # (auto) 0.01 K/uL (0-0.2); Basophils % (auto) 0.1 %; Eosinophils # (auto) 0.08 K/uL (0-0.5); Eosinophils % (auto) 1.1 %; Hematocrit (blood only) 40.8 % (37-47); Hemoglobin 14.2 g/dL (12.0-16.0); Immature Granulocytes # (auto) 0.04 K/uL (0.00-0.02); Immature Granulocytes % (auto) 0.6 %; Lymphocytes # (auto) 0.71 K/uL (1.2-3.4); Lymphocytes % (auto) 10.1 %; Mean Corpuscular Hemoglobin 30.5 pg (25-34); Mean Corpuscular Hgb Conc 34.8 g/dL (32-36); Mean Corpuscular Volume 87.6 fL (80-100); Mean Platelet Volume 9.4 fL (7.4-10.4); Monocytes # (auto) 0.63 K/uL (0.11-0.59); Monocytes % (auto) 8.9 %; Neutrophils # (auto) 5.58 K/uL (1.4-6.5); Neutrophils % (auto) 79.2 %; Platelet Count 215 K/uL (130-400); RDW Coefficient of Variation 12.7 % (11.5-14.5); RDW Standard Deviation 40.7 fL (36.4-46.3); Red Blood Count 4.66 M/uL (4.2-5.4); White Blood Count 7.05 K/uL (4.8-10.8)
[2019-10-10 17:38] LABS: Albumin Level 4.3 gm/dl (3.4-5.0); BUN Creatinine Ratio 13.4 (10-20); Calcium 9.5 mg/dl (8.5-10.1); Creatinine Clr Calc Pharmacy 67.9 ml/min; Est GFR (Non-African American) 77.7; Potassium 3.9 mmol/L (3.5-5.1)
[2019-10-10 17:41] LABS: Albumin Globulin Ratio 1.3 (0.9-2); Bilirubin,Total 0.7 mg/dl (0.2-1); Globulin 3.4 gm/dl (2.5-4.0); Total Protein 7.7 gm/dl (6.4-8.2)
[2019-10-10 17:44] LABS: Appearance Urine Turbid (Clear); Bacteria Urine Automated Negative (Negative); Bilirubin Urine Negative (Negative); Blood Urine 3+ (Negative); Color Urine Dark Yellow; Epithelial Cell Urine Auto >30 /lpf (0-5); Glucose Urine UA Negative (Negative); Ketones Urine Negative (Negative); Leukocyte Esterase Urine Negative (Negative); Nitrite Urine Negative (Negative); Protein Urine Trace (Negative); RBC Urine Automated >30 /hpf (0-4); Urobilinogen Urine Negative (Negative)
--- NOTE | 2019-10-10 17:58 | CT Scan Report ---
CT OF THE ABDOMEN AND PELVIS WITHOUT CONTRAST CLINICAL HISTORY: Right flank pain. COMPARISON STUDY: CT of the abdomen and pelvis May 11, 2019. TECHNIQUE: Axial images of the abdomen and pelvis were obtained without IV contrast. Images were revi ewed in the axial, sagittal, and coronal planes. Automated exposure control was utilized for the bashir dy. A dose lowering technique was utilized adhering to the principles of ALARA. FINDINGS: A 7 mm x 5 mm right ureteropelvic junction calculus results in moderate right hydronephrosi s. There is mild perinephric infiltration. Note is made of a 5 mm calculus within the midpole of the right kidney. No additional ureteral calculi are noted. There are gonadal phleboliths. There are no l eft-sided urinary calculi. There is no left hydronephrosis. Evaluation of the remainder of the abdome n and pelvis is suboptimal on this unenhanced exam. Mild bladder wall thickening is unchanged. The li kenzie, spleen, adrenal glands and pancreas are unremarkable. There is no evidence for a bowel obstructi on. There is no lymphadenopathy or ascites. There are no suspicious osseous lesions. IMPRESSION: 1. 7 mm x 5 mm right ureteropelvic junction calculus which results in moderate right hydronephrosis. 2. 5 mm right renal calculus. 3. No change in bladder wall thickening. ACT 112: Negative or not required by law. Electronically signed by: Danny Carvalho M.D. 10/10/2019 5:57 PM
--- NOTE | 2019-10-10 19:02 | XRay Report ---
KUB HISTORY: Follow up study in a patient with right ureteral calculus RIGHT URETERAL STONE COMPARISON: CT abdomen and pelvis of same day at 5:35 PM FINDINGS: The bowel gas pattern is non-obstructive. There is no organomegaly. 5 mm calculus of the i nterpolar right kidney redemonstrated. The previously described 5 mm calculus of the proximal right u reter at the level of L4 is not definitively seen, likely overlying the vertebral body. Multiple pelv ic basin calcifications suggest phleboliths. No pneumoperitoneum or pneumatosis. No fracture. IMPRESSION: 1. Previously noted 5 mm proximal right ureteral calculus is not definitively seen. 2. Nonobstructing right nephrolithiasis redemonstrated. ACT 112: Negative or not required by law. The above report was generated using voice recognition software. It may contain grammatical, syntax o r spelling errors. Electronically signed by: Drake Tillman M.D. 10/10/2019 7:01 PM
[2019-10-10] MEDS ORDERED: ALPRAZolam 0.5 MG TABLET PO PRN (20:45)
[2019-10-10] MEDS ORDERED: ONDANSETRON INJ 2 MG/ML 2 ML VIAL IV PRN (20:45)
[2019-10-10] MEDS: SODIUM CHLORIDE 0.9% 1000ML 1,000 ML IV SCH (21:02)
[2019-10-10] MEDS: ACETAMINOPHEN 325 MG TAB PO PRN (22:20)
--- NOTE | 2019-10-10 22:43 | History and Physical Report ---
DATE OF ADMISSION: 10/10/2019 CHIEF COMPLAINT: Right flank pain. HISTORY OF PRESENT ILLNESS: A 54-year-old female with past medical history significant for follicular lymphoma, history of psoriasis, history of hypertension, not on medications, on chemotherapy, [facility] [place], last chemo was last Thursday, she gets chemo every 8 weeks and coming October she will have PET scan to decide and to check whether lymphoma is in remission, she was first diagnosed in 07/2018, comes because of right flank pain. The patient noticed some right flank pain yesterday and today at 2:30 it got worse and was radiating to the groin and she has episodes of vomiting because of pain, and also some dizziness because of pain and that is the reason she came to the ER. In the ER CAT scan was done which showed 7 mm right UVJ junction calculus with moderate right hydronephrosis. She denies any burning micturitions, no hematuria, no constipation or diarrhea, no blood in the stools. No chest pain, no shortness of breath, no cough, no fever, no chills, no headache, no blurred vision, no earache, no runny nose, no sore throat. Otherwise, appetite is okay. She has no dysphagia, no odynophagia. She has a rash from her psoriasis in the extremities. No swelling in the legs. Lives with her . Ambulates okay. ALLERGIES: RITUXIMAB, HYDROCHLOROTHIAZIDE. PAST MEDICAL HISTORY: As mentioned above. PAST SURGICAL HISTORY: Bilateral breast implants. FAMILY HISTORY: Significant for mother has hypertension. SOCIAL HISTORY: , lives with her . No smoking, alcohol occasionally. MEDICATIONS: The patient is on alprazolam 0.5 mg p.o. at bedtime p.r.n., Otezla 30 mg p.o. b.i.d., Lexapro 10 mg p.o. a.m., Linzess 145 mcg p.o. a.m., salicylic acid one application topically p.r.n. REVIEW OF SYMPTOMS: As per HPI. Rest of review of symptoms negative. PHYSICAL EXAMINATION: GENERAL: The patient is of moderate build, not in acute distress. VITAL SIGNS: Temperature 36.4, pulse 69, respiratory rate 14, blood pressure 125/82, oxygen 93% on room air. HEENT: No pallor, no icterus. Pupils equal, round, reactive to light. Oral mucosa dry. NECK: No JVD, no neck masses, no carotid bruits. CARDIOVASCULAR: S1, S2 heard, regular rate and rhythm, no murmur, no gallop. RESPIRATORY SYSTEM: Normal AP diameter. No accessory muscle use. No wheezing, no crackles. ABDOMEN: Soft, bowel sounds present, tenderness mild right groin and mild CVA tenderness, no guarding, no rigidity, no distention. CENTRAL NERVOUS SYSTEM: Cranial nerves II-XII are grossly intact. Nonfocal. EXTREMITIES: No edema, no erythema. SKIN: Some psoriatic rash seen in the posterior aspect of the upper extremities. LABORATORY DATA: WBC 7, hemoglobin 14.2, hematocrit 40.8, platelets 215. Sodium 134, potassium 3.9, chloride 103, bicarbonate 24, BUN 11, creatinine 0.8, serum glucose 126, calcium 9.5, total bilirubin 0.7, AST 16, ALT 34, alkaline phosphatase 76, lipase 94. Urinalysis, +[address] of abdomen and pelvis, 7 mm x 5 mm right UPJ junction calculus which results in moderate right hydronephrosis, 5 mm right renal calculus, no change in bladder wall thickening. KUB x-ray, nonobstructing right nephrolithiasis redemonstrated. ASSESSMENT AND PLAN: Right renal colic. 1. Right renal colic with right UPJ junction stone, 7 mm with moderate hydronephrosis. UA is negative. No leukocytosis, no fever. Hemodynamically stable. This is the first kidney stone. Urology notified by the ER. We will admit the patient to medical floor. N.p.o. after midnight, IV fluids, IV antiemetics, IV pain meds p.r.n. and consult Urology in the a.m. for further plan of action. 2. History of anxiety and depression: Continue Lexapro and alprazolam p.r.n. 3. History of psoriasis: Otezla and salicylic acid p.r.n. 4. History of follicular lymphoma: Currently on chemo, follows [facility]. 5. Deep venous thrombosis prophylaxis, sequential compression devices for now. 6. Disposition: Admit to medical floor. Expect to discharge home and follow with her family doctor. Level 1 full code. MTDD
[2019-10-11] MEDS: HYDROmorphone INJ 0.5 MG/0.5 ML SYR IV PRN ×2 (00:28→07:13)
[2019-10-11] MEDS: SODIUM CHLORIDE 0.9% 1000ML 1,000 ML IV SCH ×3 (04:19→19:15)
[2019-10-11 05:27] LABS: Basophils # (auto) 0.02 K/uL (0-0.2); Basophils % (auto) 0.5 %; Eosinophils # (auto) 0.12 K/uL (0-0.5); Eosinophils % (auto) 3.3 %; Hematocrit (blood only) 34.6 % (37-47); Immature Granulocytes # (auto) 0.01 K/uL (0.00-0.02); Immature Granulocytes % (auto) 0.3 %; Lymphocytes # (auto) 1.06 K/uL (1.2-3.4); Lymphocytes % (auto) 28.9 %; Mean Corpuscular Hemoglobin 30.2 pg (25-34); Mean Corpuscular Hgb Conc 34.7 g/dL (32-36); Mean Corpuscular Volume 86.9 fL (80-100); Mean Platelet Volume 8.8 fL (7.4-10.4); Monocytes # (auto) 0.48 K/uL (0.11-0.59); Monocytes % (auto) 13.1 %; Neutrophils # (auto) 1.98 K/uL (1.4-6.5); Neutrophils % (auto) 53.9 %; Platelet Count 207 K/uL (130-400); RDW Coefficient of Variation 12.7 % (11.5-14.5); RDW Standard Deviation 40.9 fL (36.4-46.3); Red Blood Count 3.98 M/uL (4.2-5.4); White Blood Count 3.67 K/uL (4.8-10.8)
[2019-10-11] MEDS: ACETAMINOPHEN 325 MG TAB PO PRN ×4 (05:36→20:17)
[2019-10-11 05:58] LABS: BUN Creatinine Ratio 12.2 (10-20); Calcium 8.2 mg/dl (8.5-10.1); Creatinine Clr Calc Pharmacy 82.8 ml/min; Est GFR (African American) 113.8; Est GFR (Non-African American) 98.2; Magnesium 2.3 mg/dl (1.8-2.4); Potassium 3.7 mmol/L (3.5-5.1)
--- NOTE | 2019-10-11 07:53 | Urology Consultation ---
Date of Consultation October 11, 2019 Assessment & Plan (1) Calculus of proximal right ureter: 54 year-old female patient admitted with 7x5mm right UPJ stone with moderate hydronephrosis. -Keep NPO -Strain all urine Findings reviewed with Dr. Ramos. Given her intractable flank pain in the context of an obstructing right UPJ stone, will proceed with OR for cysto, right retrograde pyelogram and right stent placement, possible ureteroscopy, laser lithotripsy, stone basketing, possible ureteral dilation depending on findings. Risks and benefits to be reviewed with patient by Dr. Ramos. OR notified. Preoperative CXR and EKG ordered. Will cover with IV Ciprofloxacin preoperatively. History of Present Illness Reason for Consultation: Right UPJ stone Attending Physician: Ashish Stone MD History of Present Illness 54 year-old year-old female patient with history of lymphoma undergoing chemotherapy admitted with 7x5 mm right UPJ stone with moderate hydronephrosis. Chart review: WBC 3.67 Hgb 12.0 creatinine 0.70 Afebrile Urinalysis not indicative of infection Imaging: CT/abd pelvis impression: 1. 7 mm x 5 mm right ureteropelvic junction calculus which results in moderate right hydronephrosis. 2. 5 mm right renal calculus. 3. No change in bladder wall thickening. KUB reviewed: 1. Previously noted 5 mm proximal right ureteral calculus is not definitively seen. 2. Nonobstructing right nephrolithiasis redemonstrated. Patient denies history of previous stones. Has not followed with urologist in the past. Currently awake, alert, and laying in bed. Comfortable and non-toxic in appearance. Pain is reported in right flank extending into right lower abdomen. Reports her pain is controlled with IV Dilaudid. Denies fevers or chills. Denies hematuria or dysuria. Denies nausea, vomiting. Next chemotherapy is scheduled for end of October in [place]. Denies additional concerns today. Allergies Allergy/AdvReac Type Severity Reaction Status Date / Time rituximab Allergy Severe ANAPHYLAXIS Verified 10/10/19 18:19 hydrochlorothiazide AdvReac Intermediate other Verified 10/10/19 18:19 Home Medications Home Medications Medication Instructions Recorded Confirmed Type Linzess 145 mcg PO QAM 10/28/18 10/10/19 History alprazolam 0.5 mg PO HS PRN 10/28/18 10/10/19 History escitalopram oxalate 10 mg PO QAM 10/28/18 10/10/19 History apremilast [Otezla] 30 mg PO BID 11/25/18 10/10/19 History salicylic acid [Psoriasis 1 applic TOPICAL UD PRN 05/11/19 10/10/19 History Medicated] Patient History Medical History Follicular lymphoma (Chronic) GERD (gastroesophageal reflux disease) (Chronic) HTN (hypertension) (Chronic) IBS (irritable bowel syndrome) (Chronic) Lymphoma (Chronic) Psoriasis (Chronic) Subconjunctival hemorrhage (Resolved) Surgical History Bilateral breast implants (Chronic 09/18/12) History of appendectomy History of hysterectomy Family History Mother Hypertension Social History Preferred Language: Ghanaian Communication Ability: Effective Oil [employer] Required: No Beliefs That Will Affect Care: None marital status: Current Living Situation: Spouse Other Information That Helps Us Care for You: No Feels Safe at Home: Yes Safety Concerns: Feels Safe At This Time Smoking Status: Former smoker Do You Dip or Chew Tobacco: No ; Second Hand Exposure: No ; Tobacco Cessation Education Requested by Patient: No Hx Alcohol Use: Yes Alcohol type: beer and wine Hx Substance Use: No Review of Systems Review of Systems: All systems reviewed & are unremarkable except as noted in HPI & below Physical Exam Constitutional: comfortable; no acute distress, not ill appearing, no altered mental status and not lethargic Eyes: no nystagmus ENMT: Ears: no hearing impairment Neck: trachea midline Respiratory: no respiratory distress, does not use accessory muscles, no cough and no grunting Cardiovascular: Vessels: no JVD Extremities: no edema Chest (Breasts): Chest: normal inspection of chest Gastrointestinal (Abdomen): Right lower quadrant tenderness upon palpation. Musculoskeletal: no cyanosis or clubbing, extremities motor strength 5/5 Head/Neck/Chest: normocephalic and head atraumatic Extremities: extremities normal to inspection Skin: no rashes, warm and dry Neurologic: awake; not confused and not obtunded Psychiatric: Orientation: alert and oriented x 3 Eye Contact: good eye contact Affect: no depressed affect Genitourinary: Positive CVA tenderness on right. Lymphatic: no lymphadenopathy and no lymphedema Results & Data Vital Signs (Past 12 Hours) Vital Signs Temp Pulse Pulse Resp BP BP Pulse Ox 10/11/19 07:00 36.5 C 75 16 116/78 94 10/10/19 23:23 36.7 C 81 16 109/74 94 10/10/19 20:10 95 H 18 144/96 H 95 Laboratory Results Laboratory Results - last 48 hr 10/10/19 10/10/19 10/10/19 16:53 17:10 17:10 WBC 7.05 RBC 4.66 Hgb 14.2 Hct 40.8 MCV 87.6 MCH 30.5 MCHC 34.8 RDW Std Deviation 40.7 RDW Coeff of Manisha 12.7 Plt Count 215 MPV 9.4 Immature Gran % (Auto) 0.6 Neut % (Auto) 79.2 Lymph % (Auto) 10.1 [place] % (Auto) 8.9 Eos % (Auto) 1.1 Baso % (Auto) 0.1 Immature Gran # (Auto) 0.04 H Neut # (Auto) 5.58 Lymph # (Auto) 0.71 L [place] # (Auto) 0.63 H Eos # (Auto) 0.08 Baso # (Auto) 0.01 Sodium 134 L Potassium 3.9 Chloride 103 Carbon Dioxide 24 Anion Gap 8.0 BUN 11 Creatinine 0.85 Est Cr Clr Drug Dosing 67.9 Est GFR ( Amer) 90.0 Est GFR (Non-Af Amer) 77.7 BUN/Creatinine Ratio 13.4 Glucose 126 H Calcium 9.5 Magnesium Total Bilirubin 0.7 AST 16 ALT 34 Alkaline Phosphatase 76 Total Protein 7.7 Albumin 4.3 Globulin 3.4 Albumin/Globulin Ratio 1.3 Lipase 94 Urine Color Dark Yellow Urine Appearance Turbid A Urine pH 5.0 Ur Specific [place] 1.020 Urine Protein Trace H Urine Glucose (UA) Negative Urine Ketones Negative Urine Blood 3+ H Urine Nitrite Negative Urine Bilirubin Negative Urine Urobilinogen Negative Ur Leukocyte Esterase Negative Urine WBC (Auto) 1-5 Urine RBC (Auto) >30 H U Hyaline Cast (Auto) 1-5 U Epithel Cells (Auto) >30 H Urine Bacteria (Auto) Negative 10/11/19 10/11/19 05:05 05:05 WBC 3.67 L RBC 3.98 L Hgb 12.0 Hct 34.6 L MCV 86.9 MCH 30.2 MCHC 34.7 RDW Std Deviation 40.9 RDW Coeff of Manisha 12.7 Plt Count 207 MPV 8.8 Immature Gran % (Auto) 0.3 Neut % (Auto) 53.9 Lymph % (Auto) 28.9 [place] % (Auto) 13.1 Eos % (Auto) 3.3 Baso % (Auto) 0.5 Immature Gran # (Auto) 0.01 Neut # (Auto) 1.98 Lymph # (Auto) 1.06 L [place] # (Auto) 0.48 Eos # (Auto) 0.12 Baso # (Auto) 0.02 Sodium 139 Potassium 3.7 Chloride 111 H Carbon Dioxide 24 Anion Gap 4.0 BUN 9 Creatinine 0.70 Est Cr Clr Drug Dosing 82.8 Est GFR ( Amer) 113.8 Est GFR (Non-Af Amer) 98.2 BUN/Creatinine Ratio 12.2 Glucose 98 Calcium 8.2 L Magnesium 2.3 Total Bilirubin AST ALT Alkaline Phosphatase Total Protein Albumin Globulin Albumin/Globulin Ratio Lipase Urine Color Urine Appearance Urine pH Ur Specific [place] Urine Protein Urine Glucose (UA) Urine Ketones Urine Blood Urine Nitrite Urine Bilirubin Urine Urobilinogen Ur Leukocyte Esterase Urine WBC (Auto) Urine RBC (Auto) U Hyaline Cast (Auto) U Epithel Cells (Auto) Urine Bacteria (Auto) PG Care Time/CCT Total # of Minutes Spent Total Time Spent with Patient: Total time spent is greater than 50% in coordination of care (as documented) at patient's floor/unit and/or counseling patient: Coding Level of Care Code 51170 Inpt Consult Level 4 Diagnoses Calculus of proximal right ureter N20.1
[2019-10-11] MEDS ORDERED: CIPROFLOXACIN 400 MG/200 ML BAG IV ONE (08:02)
[2019-10-11] MEDS: ESCITALOPRAM OXALATE 10 MG TAB PO SCH (08:29)
--- NOTE | 2019-10-11 09:00 | XRay Report ---
XR chest 2V PA/lateral CLINICAL HISTORY: Preop COMPARISON STUDY: 05/11/2019 FINDINGS: There is a thoracic dextroscoliosis. There are postsurgical changes present within the cerv ical spine. There is a right-sided A-Port catheter. The cardiac and mediastinal contours remain stabl e. There is no failure. There is no focal pulmonary consolidation. There are no pleural effusions.[ IMPRESSION: No active disease in the chest. ACT 112: Negative or not required by law. Electronically signed by: Devin Joseph M.D. 10/11/2019 8:58 AM
--- NOTE | 2019-10-11 11:55 | Hospitalist Progress Note ---
Date of Service October 11, 2019 Assessment & Plan (1) Calculus of proximal right ureter: right renal colic secondary to right renal stone -54 year-old female patient admitted with 7x5mm right UPJ stone with moderate hydronephrosis. -on IV fluids -as per urology on 10/11/2019 " Given her intractable flank pain in the context of an obstructing right UPJ stone, will proceed with OR for cysto, right retrograde pyelogram and right stent placement, possible ureteroscopy, laser lithotripsy, stone basketing, possible ureteral dilation depending on findings. Risks and benefits to be reviewed with patient by Dr. Ramos. OR notified. Preoperative CXR and EKG ordered. Will cover with IV Ciprofloxacin preoperatively." History of follicular lymphoma -Currently on chemotherapy as outpatient, follows with [facility]. -once renal stone removed, patient advised to discuss with her oncologists whether if chemotherapy increases the renal stone risks History of anxiety and depression -Continue Lexapro and alprazolam p.r.n. History of psoriasis -on non hospital formulary medications as outpatient of Otezla and salicylic acid p.r.n. Deep venous thrombosis prophylaxis, sequential compression devices for now. Admission and Anticipated Discharge Date Admission Date: admission date October 10, 2019, discharge date undetermined Subjective no acute distress. right flank pain. on IV fluids awaiting urology for planned operating room procedure to remove the 7x5mm right UPJ stone with moderate hydronephrosis no chest pain. no vomiting. no shortness of breath. breathing on room air. no dizziness. no headache. no dizziness. no febrile temperature in hospital Review of Systems Review of Systems: All systems reviewed & are unremarkable except as noted in HPI & below Physical Exam Constitutional: WD/WN, vitals as above Eyes: PERRL, conjunctivae normal, anicteric sclerae EOM intact bilaterally ENMT: external ear and nose normal, oropharynx normal Neck: normal visual inspection Respiratory: normal respiratory effort, lungs clear to auscultation Cardiovascular: Rate/Rhythm: regular rate and regular rhythm Gastrointestinal (Abdomen): normal bowel sounds, soft, nontender, no hepatosplenomegaly Musculoskeletal: Head/Neck/Chest: normocephalic and head atraumatic right flank pain on exam Neurologic: PERRL, EOMI, accommodation nl, no face palsy, no dysarthria CN's II-XI intact bilaterally Psychiatric: A+Ox3, euthymic affect Results & Data ([facility]) Vital Signs (Past 12 Hours) Vital Signs Temp Pulse Resp BP Pulse Ox 10/11/19 07:00 36.5 C 75 16 116/78 94
--- NOTE | 2019-10-11 15:03 | Electrocardiogram Report ---
Test Reason : Blood Pressure : / mmHG Vent. Rate : 062 BPM Atrial Rate : 062 BPM P-R Int : 186 ms QRS Dur : 074 ms QT Int : 398 ms P-R-T Axes : 040 006 013 degrees QTc Int : 403 ms Normal sinus rhythm Normal ECG When compared with ECG of 11-MAY-2019 12:03, No significant change was found Confirmed by Santhosh Copeland ([id number]) on 10/11/2019 3:03:05 PM Referred By: REFERRED SELF Confirmed By:Santhosh Copeland
[2019-10-11] MEDS ORDERED: CIPROFLOXACIN 400MG / 200ML D5W IV ONE (15:53)
[2019-10-11] MEDS ORDERED: MIDAZOLAM HCL 1 MG/ML 2ML VIAL ONE (16:04)
[2019-10-11] MEDS ORDERED: PROPOFOL IV EMULSION 10 MG/ML 20 ML VIAL IV ONE (16:04)
[2019-10-11] MEDS ORDERED: fentaNYL citrate 100 MCG/2 ML VIAL ONE (16:04)
[2019-10-11] MEDS ORDERED: DEXAMETHASONE SOD INJ 4 MG/ML VIAL ONE (16:04)
[2019-10-11] MEDS ORDERED: ONDANSETRON INJ 2 MG/ML 2 ML VIAL ONE (16:04)
[2019-10-11] MEDS ORDERED: LIDOCAINE HCL 2% 2 ML VIAL/AMP(20MG/ML) INFIL ONE (16:04)
[2019-10-11] MEDS ORDERED: IOTHALAMATE MEGLUMINE II 17.2% 250 ML VIAL ONE (16:10)
--- NOTE | 2019-10-11 16:21 | Anesthesiology Consultation ---
Date of Service October 11, 2019 Assessment & Plan Chart Review Chart Review: Acceptable Risk for Surgery Consults Requested none History Surgery Operation Date: 10/11/19 15:30 Proposed Procedures p Cystoscopy, Right Stent Placement, Possible Laser Lithotripsy and Ureteroscopy - Angel Ramos MD Height/Weight Height: 5 ft Weight: 74.5 kg Allergies Allergy/AdvReac Type Severity Reaction Status Date / Time rituximab Allergy Severe ANAPHYLAXIS Verified 10/10/19 18:19 hydrochlorothiazide AdvReac Intermediate other Verified 10/10/19 18:19 Medications Home Medications Medication Instructions Recorded Confirmed Last Taken Linzess 145 mcg PO QAM 10/28/18 10/10/19 10/10/19 alprazolam 0.5 mg PO HS PRN 10/28/18 10/10/19 10/09/19 21:00 escitalopram oxalate 10 mg PO QAM 10/28/18 10/10/19 10/10/19 apremilast [Otezla] 30 mg PO BID 11/25/18 10/10/19 10/10/19 salicylic acid [Psoriasis 1 applic TOPICAL UD PRN 05/11/19 10/10/19 10/08/19 Medicated] Active Medications Generic Name Dose Route Start Last Admin Trade Name Freq PRN Reason Stop Dose Admin Acetaminophen 650 mg 10/10/19 20:45 10/11/19 15:22 Tylenol PO 11/09/19 20:44 650 mg Q4H PRN Administration pain/fever Escitalopram Oxalate 10 mg 10/11/19 09:00 10/11/19 08:29 Lexapro Tab PO 11/10/19 08:59 10 mg QAM GENA Administration Hydromorphone HCl 0.5 mg 10/10/19 20:45 10/11/19 07:13 Dilaudid IV 10/24/19 20:44 0.5 mg Q3H PRN Administration Pain Sodium Chloride 1,000 mls @ 125 mls/hr 10/10/19 21:00 10/11/19 11:51 Nss 1000ml IV 11/09/19 20:59 125 mls/hr .Q8H GENA Administration Miscellaneous 1 ea 10/11/19 00:00 10/11/19 07:11 Order Awaiting Action N/A 11/10/19 00:00 Not Given QS GENA Miscellaneous 1 ea 10/11/19 00:00 10/11/19 07:11 Order Awaiting Action N/A 11/10/19 00:00 Not Given QS GENA Miscellaneous 1 ea 10/11/19 00:00 10/11/19 07:11 Order Awaiting Action N/A 11/10/19 00:00 Not Given QS GENA NPO Date Last Intake of Fluids: 10/10/19 Time Last Intake of Fluids: 23:45 Date Last Intake of Solids: 10/10/19 Time Last Intake of Solids: 23:45 Past Medical History Medical History Follicular lymphoma (Chronic) GERD (gastroesophageal reflux disease) (Chronic) HTN (hypertension) (Chronic) IBS (irritable bowel syndrome) (Chronic) Lymphoma (Chronic) Psoriasis (Chronic) Subconjunctival hemorrhage (Resolved) Past Family History Family History Mother Hypertension Past Surgical History Surgical History Bilateral breast implants (Chronic 09/18/12) History of appendectomy History of hysterectomy Social History Smoking Status: Former smoker Do You Dip or Chew Tobacco: No Hx Alcohol Use: Yes Alcohol type: beer and wine alcohol intake frequency: holidays/special occasions only Hx Substance Use: No Physical Exam Vital Signs Last Vital Signs Temp 37.1 C 10/11/19 16:07 Pulse 69 10/11/19 16:07 Resp 16 10/11/19 16:07 BP 123/69 10/11/19 16:07 Pulse Ox 95 10/11/19 16:07 Testing Laboratory Results 10/11/19 05:05 10/11/19 05:05 Urine Color Dark Yellow 10/10/19 16:53 Urine Appearance Turbid (Clear) A 10/10/19 16:53 Urine pH 5.0 (4.5-7.5) 10/10/19 16:53 Ur Specific [place] 1.020 (1.000-1.030) 10/10/19 16:53 Urine Protein Trace (Negative) H 10/10/19 16:53 Urine Glucose (UA) Negative (Negative) 10/10/19 16:53 Urine Ketones Negative (Negative) 10/10/19 16:53 Urine Nitrite Negative (Negative) 10/10/19 16:53 Ur Leukocyte Esterase Negative (Negative) 10/10/19 16:53 Urine WBC (Auto) 1-5 /hpf (0-5) 10/10/19 16:53 Urine RBC (Auto) >30 /hpf (0-4) H 10/10/19 16:53 U Hyaline Cast (Auto) 1-5 /lpf (0-5) 10/10/19 16:53 U Epithel Cells (Auto) >30 /lpf (0-5) H 10/10/19 16:53 Urine Bacteria (Auto) Negative (Negative) 10/10/19 16:53
[2019-10-11] MEDS ORDERED: DEXAMETHASONE SOD INJ 4 MG/ML VIAL IV PRN (16:23)
[2019-10-11] MEDS ORDERED: METOCLOPRAMIDE HCL INJ 5 MG/ML 2 ML VIAL IV PRN (16:23)
[2019-10-11] MEDS ORDERED: ONDANSETRON INJ 2 MG/ML 2 ML VIAL IV PRN (16:23)
[2019-10-11] MEDS ORDERED: ATROPINE SULFATE 0.1 MG/ML 10ML SYR IV PRN (16:23)
[2019-10-11] MEDS ORDERED: fentaNYL citrate 100 MCG/2 ML VIAL IV PRN (16:23)
[2019-10-11] MEDS ORDERED: ePHEDrine sulfate 50 MG/ML AMP IV PRN (16:23)
[2019-10-11] MEDS ORDERED: HYDROmorphone INJ 2 MG/ML SYR/VIAL IV PRN (16:23)
[2019-10-11] MEDS ORDERED: PROMETHAZINE HCL 12.5 MG in SODIUM CHLORIDE 0.9% 50 ML IV PRN (16:23)
--- NOTE | 2019-10-11 17:23 | Operative Report ---
PG Post Operative Report Pre & Post Diagnosis Operation Date: 10/11/19 15:30 Pre-Op Diagnosis: Calculus of proximal right ureter Post-Op Diagnosis: Calculus of proximal right ureter I identified the patient and participated in the time-out.: Yes Procedure Operation Date: 10/11/19 15:30 Actual Procedures p Cystoscopy, Retrograde Pyelogram,Right Stent Placement, Laser Lithotripsy and Ureteroscopy - Angel Ramos MD Surgeon Derrick Ramos MD Residential Life Director none Estimated Blood Loss 0 Findings Consistent with Post-Op Diagnosis Specimens none Description of Procedure The patient was identified in the preopertive holding area, appropriate informed consents were reviewed and completed and the patient was transferred to the operative suite. Upon arrival, appropriate antibiotics and anesthesia were administered and the patient was placed in dorsal lithotomy position and prepped and draped in sterile fashion. To begin the case I passed a 22 Burmese cystoscope per urethra. Inspection revealed healthy appearing bladder without any mucosal abnormalities. There was clear reflux from both kidneys. I turned my attention to the right ureteral orifice and cannulated with a sensor wire and a 10 Burmese double-lumen catheter. A second sensor wire was passed to the second lumen of the 10 Burmese double-ximena men. Both of these wires advanced the kidney without difficulty. I then withdrew the 10 Burmese double-lumen catheter and advanced a flexible ureteroscope. Full renoscopy was conducted. There were 2 stones identified in the upper pole of the kidney. One appeared to be more Russell's plaque than a free-floating stone the second was presumably the stone that had been in the proximal ureter and pushed retrograde into the upper pole. I passed a 360 m laser fiber and I fragmented all of the stones to sizes deemed safe for spontaneous passage. I performed a repeat renoscopy identifying no other large retained stones. I performed a careful exit ureteroscopy identifying no stones within the ureter. I placed a 6 Burmese by 24 cm double-J ureteral stent with the string left attached to it. There is a good curl in the kidney as well as the bladder. The string was placed on her right inner thigh and adhered with Steri-Strips. Emptied her bladder and concluded the case. She was extubated and taken to the PACU in stable condition. There were no complications. I attest to the content of the Intraoperative Record and any orders documented therein. Any exceptions are noted below.
[2019-10-11] MEDS ORDERED: ePHEDrine sulfate 50 MG/ML SYR ONE (17:33)
--- NOTE | 2019-10-11 17:35 | Fluoroscopy Report ---
FL retrograde includes kub CLINICAL HISTORY: 54 years-old Female presenting with RT STENT. TECHNIQUE: 3 fluoroscopic image(s) recorded as part of an intraoperative procedure. COMPARISON: Plain radiograph from 10/10/2019. FINDINGS/IMPRESSION: A guidewire was advanced into the right urinary collecting system, and a right ureteral stent was rebekah yasmin. Please see surgical report for further details. Fluoroscopy dosage (mGy): 2.93. Fluoroscopy time: 15.4 seconds. Number or time of high level fluoroscopy (HLF), digital spot, or digital subtraction images: 0. ACT 112: Negative or not required by law. Electronically signed by: Geovanni Duran M.D. 10/11/2019 5:34 PM
--- NOTE | 2019-10-11 17:52 | Anesthesiology Progress Note ---
Date of Service October 11, 2019 Anesthesia Post Procedure Vital Signs Vital Signs: Temp Pulse Pulse Pulse Resp BP BP 10/11/19 17:45 83 15 141/90 H 10/11/19 17:35 81 15 138/89 10/11/19 17:27 36.6 C 92 H 16 142/98 H 10/11/19 16:07 37.1 C 69 16 123/69 10/11/19 15:35 36.5 C 71 16 120/76 10/11/19 07:00 36.5 C 75 16 10/10/19 23:23 36.7 C 81 16 10/10/19 20:10 95 H 18 144/96 H 10/10/19 18:42 69 14 BP Pulse Ox 10/11/19 17:45 93 10/11/19 17:35 98 10/11/19 17:27 98 10/11/19 16:07 95 10/11/19 15:35 94 10/11/19 07:00 116/78 94 10/10/19 23:23 109/74 94 10/10/19 20:10 95 10/10/19 18:42 125/82 93 Pain Intensity Right Flank: Pain Intensity: 6 Transfer of Care Handoff Completed per policy Notes Mental Status: alert / awake / arousable and participated in evaluation Patient Amnestic to Procedure: Yes Nausea / Vomiting: adequately controlled Pain: adequately controlled Airway Patency, RR, SpO2: stable & adequate BP & HR: stable & adequate Hydration State: stable & adequate Anesthetic Complications: no major complications apparent
[2019-10-11] MEDS ORDERED: HYDROmorphone INJ 0.5 MG/0.5 ML SYR IV PRN (18:41)
[2019-10-11] MEDS: SENNA 8.6 MG TAB PO SCH (20:18)
[2019-10-11] MEDS: DOCUSATE SODIUM 100 MG CAP PO SCH (20:18)
[2019-10-12] MEDS: OXYCODONE HCL IR 5 MG TAB (IMMEDIATE RELEASE) PO PRN ×3 (03:47→15:57)
[2019-10-12 05:58] LABS: Basophils # (auto) 0.01 K/uL (0-0.2); Basophils % (auto) 0.2 %; Eosinophils # (auto) 0.12 K/uL (0-0.5); Eosinophils % (auto) 2.5 %; Hematocrit (blood only) 34.2 % (37-47); Hemoglobin 11.9 g/dL (12.0-16.0); Immature Granulocytes # (auto) 0.01 K/uL (0.00-0.02); Immature Granulocytes % (auto) 0.2 %; Lymphocytes # (auto) 0.79 K/uL (1.2-3.4); Lymphocytes % (auto) 16.4 %; Mean Corpuscular Hemoglobin 30.7 pg (25-34); Mean Corpuscular Hgb Conc 34.8 g/dL (32-36); Mean Corpuscular Volume 88.4 fL (80-100); Mean Platelet Volume 9.2 fL (7.4-10.4); Monocytes # (auto) 0.47 K/uL (0.11-0.59); Monocytes % (auto) 9.7 %; Neutrophils # (auto) 3.43 K/uL (1.4-6.5); Platelet Count 199 K/uL (130-400); RDW Coefficient of Variation 12.9 % (11.5-14.5); RDW Standard Deviation 41.2 fL (36.4-46.3); Red Blood Count 3.87 M/uL (4.2-5.4); White Blood Count 4.83 K/uL (4.8-10.8)
[2019-10-12 06:31] LABS: Albumin Level 3.4 gm/dl (3.4-5.0); BUN Creatinine Ratio 12.8 (10-20); Calcium 8.6 mg/dl (8.5-10.1); Creatinine Clr Calc Pharmacy 74.3 ml/min; Est GFR (African American) 99.9; Est GFR (Non-African American) 86.2; Potassium 3.5 mmol/L (3.5-5.1)
[2019-10-12 06:35] LABS: Albumin Globulin Ratio 1.2 (0.9-2); Bilirubin,Total 0.4 mg/dl (0.2-1); Globulin 2.8 gm/dl (2.5-4.0); Total Protein 6.2 gm/dl (6.4-8.2)
[2019-10-12] MEDS: SODIUM CHLORIDE 0.9% 1000ML 1,000 ML IV SCH (06:46)
--- NOTE | 2019-10-12 07:40 | Anesthesiology Progress Note ---
Date of Service October 12, 2019 Anesthesia Post Procedure Vital Signs Vital Signs: Temp Pulse Pulse Pulse Resp BP Pulse Ox 10/12/19 03:27 36.8 C 82 18 128/85 93 10/11/19 23:20 37.0 C 96 H 18 104/67 90 10/11/19 21:17 37 C 75 16 116/74 90 10/11/19 20:15 36.6 C 83 16 148/88 H 93 10/11/19 19:14 36.8 C 67 16 131/86 94 10/11/19 18:40 36.5 C 67 16 129/84 94 10/11/19 18:10 36.6 C 80 18 121/81 93 10/11/19 17:55 36.6 C 81 14 127/77 93 10/11/19 17:45 83 15 141/90 H 93 10/11/19 17:35 81 15 138/89 98 10/11/19 17:27 36.6 C 92 H 16 142/98 H 98 10/11/19 16:07 37.1 C 69 16 123/69 95 10/11/19 15:35 36.5 C 71 16 120/76 94 Pain Intensity Right Flank: Pain Intensity: 6 Notes Mental Status: alert / awake / arousable and participated in evaluation Patient Amnestic to Procedure: Yes Nausea / Vomiting: adequately controlled Pain: adequately controlled Airway Patency, RR, SpO2: stable & adequate BP & HR: stable & adequate Hydration State: stable & adequate Anesthetic Complications: no major complications apparent and Pt Satisfied with anesthetic care
--- NOTE | 2019-10-12 07:54 | Urology Progress Note ---
Date of Service October 12, 2019 Assessment & Plan (1) Calculus of proximal right ureter: Postop day #1 status post right ureteroscopy and laser lithotripsy She has a stent with a string Plan for DC of that stent tomorrow or Thursday as an outpatient Likely can go home now Given her lymphoma and chemotherapy I would recommend coverage with antibiotics (Cipro) through stent removal Subjective Postop day #1 status post right ureteroscopy laser lithotripsy and stent Progressing appropriately Mild stent related discomfort No fevers or chills Tolerating diet Physical Exam Physical Exam: Comfortable appearing No apparent distress No respiratory distress Regular rate and rhythm Abdomen soft, no CVA tenderness Results & Data Vital Signs (Past 12 Hours) Vital Signs Temp Pulse Resp BP Pulse Ox 10/12/19 03:27 36.8 C 82 18 128/85 93 10/11/19 23:20 37.0 C 96 H 18 104/67 90 10/11/19 21:17 37 C 75 16 116/74 90 10/11/19 20:15 36.6 C 83 16 148/88 H 93 PG Care Time/CCT Total # of Minutes Spent Total Time Spent with Patient: Total time spent is greater than 50% in coordination of care (as documented) at patient's floor/unit and/or counseling patient: Coding Level of Care Code 66594 Subseq Hosp Care Lvl 3 Diagnoses Calculus of proximal right ureter N20.1
[2019-10-12] MEDS: ACETAMINOPHEN 325 MG TAB PO PRN (08:22)
[2019-10-12] MEDS: DOCUSATE SODIUM 100 MG CAP PO SCH (08:23)
[2019-10-12] MEDS: SENNA 8.6 MG TAB PO SCH (08:23)
[2019-10-12] MEDS: ESCITALOPRAM OXALATE 10 MG TAB PO SCH (08:23)
[2019-10-12] MEDS ORDERED: CIPROFLOXACIN 500 MG TAB PO SCH (11:45)
--- NOTE | 2019-10-12 14:13 | Hospitalist Progress Note ---
Date of Service October 12, 2019 Assessment & Plan (1) Calculus of proximal right ureter: -CT abdomen and pelvis: 1. 7 mm x 5 mm right ureteropelvic junction calculus which results in moderate right hydronephrosis. 2. 5 mm right renal calculus. 3. No change in bladder wall thickening. - evaluated by Urology Service 10/11/19: s/p Cystoscopy, Retrograde Pyelogram,Right Stent Placement, Laser Lithotripsy and Ureteroscopy - Angel Ramos MD - RLQ and back pain improving plan to d/c today if pain continues to be well controlled with PO medications - discharge plan: Ciprofloxacin 500mg BID x 5 days PRN Oxycodone 5mg q6h PRN ff up with Dr. Ramos 10/13/ or 10/14 for stent removal ff up with PCP in 1 week History of follicular lymphoma - per previous attending Dr. Stone's notes" -Currently on chemotherapy as outpatient, [facility]. -once renal stone removed, patient advised to discuss with her oncologists whether if chemotherapy increases the renal stone risks History of anxiety and depression -Continue Lexapro and alprazolam p.r.n. History of psoriasis -on non hospital formulary medications as outpatient of Otezla and salicylic acid p.r.n. Disposition D/c home ff up with Dr. Ramos 10/13/ or 10/14 for stent removal ff up with PCP in 1 week Admission and Anticipated Discharge Date Admission Date: October 10, 2019 Subjective Follow-up for right ureteral stone Seen resting in bed, comfortable, in good spirits States right lower quadrant pain is about 6 out of 10, improving Has raspberry colored urine, no dysuria, no fever or chills, no other abdominal pain, nausea or vomiting Denies chest pain, shortness of breath, palpitations, dizziness No other symptoms Review of Systems Review of Systems: All systems reviewed & are unremarkable except as noted in HPI & below Physical Exam Physical Exam: General- oriented x 3, not in distress, speaks in sentences with no effort or accessory muscle use Eyes- anicteric Neck- no JVD Lungs- clear breath sounds bilaterally, no rales/wheezes Heart- normal rate, regular rhythm; no murmurs Abdomen- normal bowel sounds, nondistended, soft Positive mild CVA tenderness on the right Positive mild tenderness of the right lower quadrant Extremities- no pretibial edema, no calf tenderness Neuro- alert, oriented x 3; no gross focal neurologic deficits Skin- warm & dry Results & Data ([facility]) Vital Signs (Past 12 Hours) Vital Signs Temp Pulse Pulse Resp BP Pulse Ox 10/12/19 07:40 37.0 C 82 14 120/80 95 10/12/19 03:27 36.8 C 82 18 128/85 93 Laboratory Results Laboratory Results - last 24 hr 10/12/19 10/12/19 05:34 05:34 WBC 4.83 RBC 3.87 L Hgb 11.9 L Hct 34.2 L MCV 88.4 MCH 30.7 MCHC 34.8 RDW Std Deviation 41.2 RDW Coeff of Manisha 12.9 Plt Count 199 MPV 9.2 Immature Gran % (Auto) 0.2 Neut % (Auto) 71.0 Lymph % (Auto) 16.4 [place] % (Auto) 9.7 Eos % (Auto) 2.5 Baso % (Auto) 0.2 Immature Gran # (Auto) 0.01 Neut # (Auto) 3.43 Lymph # (Auto) 0.79 L [place] # (Auto) 0.47 Eos # (Auto) 0.12 Baso # (Auto) 0.01 Sodium 139 Potassium 3.5 Chloride 109 H Carbon Dioxide 26 Anion Gap 4.0 BUN 10 Creatinine 0.78 Est Cr Clr Drug Dosing 74.3 Est GFR ( Amer) 99.9 Est GFR (Non-Af Amer) 86.2 BUN/Creatinine Ratio 12.8 Glucose 101 H Calcium 8.6 Total Bilirubin 0.4 AST 10 L ALT 23 Alkaline Phosphatase 56 Total Protein 6.2 L Albumin 3.4 Globulin 2.8 Albumin/Globulin Ratio 1.2
--- NOTE | 2019-10-12 16:42 | Discharge Summary ---
Date of Service October 12, 2019 Admission HPI Per Admitting Provider CHIEF COMPLAINT: Right flank pain. HISTORY OF PRESENT ILLNESS: A 54-year-old female with past medical history significant for follicular lymphoma, history of psoriasis, history of hypertension, not on medications, on chemotherapy, [facility] in [place], last chemo was last Thursday, she gets chemo every 8 weeks and coming October she will have PET scan to decide and to check whether lymphoma is in remission, she was first diagnosed in 07/2018, comes because of right flank pain. The patient noticed some right flank pain yesterday and today at 2:30 it got worse and was radiating to the groin and she has episodes of vomiting because of pain, and also some dizziness because of pain and that is the reason she came to the ER. In the ER CAT scan was done which showed 7 mm right UVJ junction calculus with moderate right hydronephrosis. She denies any burning micturitions, no hematuria, no constipation or diarrhea, no blood in the stools. No chest pain, no shortness of breath, no cough, no fever, no chills, no headache, no blurred vision, no earache, no runny nose, no sore throat. Otherwise, appetite is okay. She has no dysphagia, no odynophagia. She has a rash from her psoriasis in the extremities. No swelling in the legs. Lives with her . Ambulates okay. Admission Exam Per Admitting Provider PHYSICAL EXAMINATION: GENERAL: The patient is of moderate build, not in acute distress. VITAL SIGNS: Temperature 36.4, pulse 69, respiratory rate 14, blood pressure 125/82, oxygen 93% on room air. HEENT: No pallor, no icterus. Pupils equal, round, reactive to light. Oral mucosa dry. NECK: No JVD, no neck masses, no carotid bruits. CARDIOVASCULAR: S1, S2 heard, regular rate and rhythm, no murmur, no gallop. RESPIRATORY SYSTEM: Normal AP diameter. No accessory muscle use. No wheezing, no crackles. ABDOMEN: Soft, bowel sounds present, tenderness mild right groin and mild CVA tenderness, no guarding, no rigidity, no distention. CENTRAL NERVOUS SYSTEM: Cranial nerves II-XII are grossly intact. Nonfocal. EXTREMITIES: No edema, no erythema. SKIN: Some psoriatic rash seen in the posterior aspect of the upper extremities. Principal Diagnosis RIGHT URETERAL STONE, STATUS POST URETERAL STENT PLACEMENT AND LITHOTRIPSY 10/11 Discharge Exam General- oriented x 3, not in distress, speaks in sentences with no effort or accessory muscle use Eyes- anicteric Neck- no JVD Lungs- clear breath sounds bilaterally, no rales/wheezes Heart- normal rate, regular rhythm; no murmurs Abdomen- normal bowel sounds, nondistended, soft Positive mild CVA tenderness on the right Positive mild tenderness of the right lower quadrant Extremities- no pretibial edema, no calf tenderness Neuro- alert, oriented x 3; no gross focal neurologic deficits Skin- warm & dry Discharge Data Allergies Allergy/AdvReac Type Severity Reaction Status Date / Time rituximab Allergy Severe ANAPHYLAXIS Verified 10/10/19 18:19 hydrochlorothiazide AdvReac Intermediate other Verified 10/10/19 18:19 Consultations 10/10/19 18:57 ED Decision to Admit Stat 10/11/19 08:00 Consult Urology Routine Procedures Performed Operation Date: 10/11/19 15:30 Actual Procedures p Cystoscopy, Retrograde Pyelogram, Laser Lithotripsy and Ureteroscopy - Angel Ramos MD s Right Stent Placement - Angel Ramos MD Ordered Studies 10/10/19 16:54 CT abd pelvis wo con Stat FINDINGS: A 7 mm x 5 mm right ureteropelvic junction calculus results in moderate right hydronephrosis. There is mild perinephric infiltration. Note is made of a 5 mm calculus within the midpole of the right kidney. No additional ureteral calculi are noted. There are gonadal phleboliths. There are no left- sided urinary calculi. There is no left hydronephrosis. Evaluation of the remainder of the abdomen and pelvis is suboptimal on this unenhanced exam. Mild bladder wall thickening is unchanged. The liver, spleen, adrenal glands and pancreas are unremarkable. There is no evidence for a bowel obstruction. There is no lymphadenopathy or ascites. There are no suspicious osseous lesions. IMPRESSION: 1. 7 mm x 5 mm right ureteropelvic junction calculus which results in moderate right hydronephrosis. 2. 5 mm right renal calculus. 3. No change in bladder wall thickening. ACT 112: Negative or not required by law. 10/11/19 10:00 FL retrograde includes kub Routine Hospital Course (1) Calculus of proximal right ureter: -CT abdomen and pelvis: 1. 7 mm x 5 mm right ureteropelvic junction calculus which results in moderate right hydronephrosis. 2. 5 mm right renal calculus. 3. No change in bladder wall thickening. - evaluated by Urology Service 10/11/19: s/p Cystoscopy, Retrograde Pyelogram,Right Stent Placement, Laser Lithotripsy and Ureteroscopy - Angel Ramos MD - RLQ and back pain improving pain continues to be well controlled with PO medications discussed with patient, she is agreeable for discharge today - discharge plan: Ciprofloxacin 500mg BID x 3 and 1/2 days (to complete 5 days total) PRN Oxycodone 5mg q6h PRN ff up with Dr. Ramos 10/13/19 for stent removal ff up with PCP in 1 week--> please repeat EKG on ff up with PCP to monitor Qt interval in light of Ciprofloxacin and Escitalopram use History of follicular lymphoma - per previous attending physician Dr. Stone's notes: -Currently on chemotherapy as outpatient, [facility]. -once renal stone removed, patient advised to discuss with her oncologists whether if chemotherapy increases the renal stone risks History of anxiety and depression -Continue Lexapro and alprazolam p.r.n. History of psoriasis -on non hospital formulary medications as outpatient of Otezla and salicylic acid p.r.n. Disposition D/c home ff up with Dr. Ramos 10/13 for stent removal ff up with PCP in 1 week Case and plan of care discussed with patient in detail and at length All questions were answered Discharge instructions discussed with patient as well She is understanding, agreeable, comfortable plan of care Total Time Total Time Spent Total Time Spent (In Minutes): 50 minutes Discharge Plan Discharge Items Patient Disposition: Home - Self-Care Reason For Visit: RIGHT FLANK PAIN Discharge Diagnosis: RIGHT URETERAL STONE Activity: As commented below Activity Comment: Resume activity gradually as tolerated, no heavy exertion until follow-up with primary care physician Lifting: Wait until after follow-up appointment Exercise/Sports: Wait until after follow-up appointment Driving/Machine Use: No driving while taking oxycodone, and until follow-up with and allowed by primary care physician Non-emergency contact: Primary Care Provider and Urologist Call non-emergency contact if: you have any medication questions, your symptoms worsen, your pain is not controlled, your pain is worsening, your pain is unusual for you, your pain is concerning for you and you have a fever Follow-up/Referrals: Angel Ramos MD [Physician] - Jeffrey Chance DO [Primary Care Provider] - Diet: Heart Healthy Addtl Attending Provider Instructions: Please review your new medication list and follow instructions very carefully. Your new medications are: Ciprofloxacin 500 mg twice a day for 3 1/2 days (antibiotic for prevention of urinary tract infection) Oxycodone 5 mg every 6 hours as needed for severe pain (narcotic pain medi cation) Drink plenty of fluids. Eat plenty of foods rich in fiber. Take a laxative daily. No driving, operating machineries while taking oxycodone. Do not use promethazine with codeine or any other narcotic medications while taking oxycodone. Call the urologist or return to the ER immediately if with worsening of symptoms, Including fever or chills, increasing pain, blood in the urine, painful urination. Follow-up with the urologist Dr. Ramos as scheduled tomorrow 10/13/2019. Follow-up with your primary care physician within 1 week. Pending Studies at Discharge: Yes Studies:: repeat EKG on follow up with Primary Care Physician within 1 week Stand-Alone Forms: My [facility] [facility], Smoking Cessation Medications and DC Order Prescriptions: New ciprofloxacin HCl 500 mg Tablet 500 mg PO BID Qty: 7 RF: 0 oxycodone 5 mg Tablet 5 mg PO Q6H PRN (Reason: severe pain) Qty: 10 RF: 0 sennosides [Senokot] 8.6 mg Tablet 8.6 mg PO QAM 7 Days Qty: 7 RF: 1 Continued alprazolam 0.5 mg Tablet 0.5 mg PO HS PRN (Reason: Anxiety) RF: 0 escitalopram oxalate 10 mg Tablet 10 mg PO QAM RF: 0 Linzess 145 mcg Capsule 145 mcg PO QAM RF: 0 Psoriasis Medicated 3 % Shampoo 1 applic topical UD PRN (Reason: Psoriasis) RF: 0 Otezla 30 mg Tablet 30 mg PO BID RF: 0 Discharge Orders: Discharge Order (Routine); Ordered 10/12/19 Ordered By: Jimi Castorena Admission Data Admit Date/Time: 10/10/19 19:37 Attending Provider: Jimi Castorena Admit Provider: Remy Charles Primary Care Provider: Jeffrey Chance Other Providers: Remy Charles ; Angel Ramos ; Ashish Stone
== END 2019-10-12 16:58 | disposition home or self-care (01) ==
LOC: ED 16:27 → SUATTDRO 19:37 → 3N 19:37 → INTOOBSV 19:37 → 3N 20:10